=== PATIENT | female | born 1940 | race Caucasian/White ===

== ENCOUNTER → 2017-08-01 09:53 | Outpatient (CLI) | payer MEDICARE, SELFPAY ==
--- NOTE | 2017-08-01 10:01 | XR_ITS ---
XR cervical spine 5V Ordering Physician: Tayo Ramirez Patient Age: 77 years: Female HISTORY: Neck pain. Fall. 07/30/2017 neck and right shoulder pain TECHNIQUE: Five-view cervical spine series COMPARISON :None available FINDINGS No acute fracture nor subluxation. C1-C2 relationships appear normal. The dens intact. Prevertebral soft tissues and alignment satisfactory. Multilevel degenerative changes throughout the cervical spine with degenerative disc changes , cervical spondylosis as well as facet arthropathy/hypertrophy. . Degenerative disc space narrowing most evident at C3/4 also with notable disc space narrowing posterior C5/6 and C6/7,,. Less evident narrowing C4/5 disc space. Minimal diffuse endplate posterior hypertrophic ridging seen at these levelslevels and yields mild foraminal encroachment bilaterally. . facet hypertrophy & arthropathy is most pronounced C 3/4 & C4/5. Most exuberant facet hypertrophy the left at C 3/4 C4/5. & Encroach upon left foramen at each of these levels. This along with uncovertebral joint spurring yields foraminal encroachment most pronounced to the the left at C3/4. IMPRESSION: No acute fracture nor subluxation. Multilevel Degenerative disc changes, & cervical spondylosis throughout C-spine as detailed above. Also exuberant facet arthropathy/hypertrophy to the left at C3/4. & C4/5..
--- NOTE | 2017-08-01 10:01 | XR_ITS ---
XR shoulder RT min 2V Ordering Physician: Tayo Ramirez Patient Age: 77 years: Female HISTORY: ITS.REASON: S/P FALL, NECK/SHOULDER PAIN3 view of the Fall with pain right shoulder TECHNIQUE: 3 view of the right shoulder COMPARISON : None FINDINGS No fracture nor dislocation. Humeral head and neck appear intact on these submitted views. Limited external rotation. Little humeral relationships appear normal. AC joint on arthropathy with mild hypertrophic changes most evident superiorly at AC joint. The right scapula and upper right ribs appear satisfactory right lung apex clear. IMPRESSION: No acute findings right shoulder. No acute fracture nor dislocation. Degenerative changes right AC joint noted.
== END ==
PROVIDERS: PCP Internal Medicine; Visit Provider Internal Medicine
DX: M54.2 Cervicalgia (principal); M25.511 Pain in right shoulder
CPT/HCPCS: 72050; 73030

== ENCOUNTER 2017-08-05 13:45 | Outpatient (RCR) | payer MEDICARE, SELFPAY | END 2017-08-05 13:46 | disposition home or self-care (01) | LOC: PT 13:45 | PROVIDERS: Family Provider Internal Medicine; PCP Internal Medicine; Visit Provider Internal Medicine | DX: M25.511 Pain in right shoulder (principal); M54.2 Cervicalgia | CPT/HCPCS: 97010; 97014; G0283 ==

== ENCOUNTER → 2017-10-21 14:20 | Outpatient (CLI) | payer MEDICARE, SELFPAY ==
--- NOTE | 2017-10-21 14:31 | XR_ITS ---
XR facial bones min 3V COMPARISON: None HISTORY: Contusion of the fore head after a fall TECHNIQUE: Sahil Marrero and lateral facial view FINDINGS: The orbital rims and orbital floors appear intact. The paranasal sinuses are clear. The nasal bone is intact and the nasal septum is in midline. The mandibles grossly normal. There is mild hyperostosis frontalis interna. IMPRESSION: Negative for facial bone fracture
--- NOTE | 2017-10-21 14:31 | XR_ITS ---
XR knee LT 3V COMPARISON: Left knee 04/15/2017 HISTORY: Left knee pain after a fall TECHNIQUE: AP lateral and oblique views FINDINGS: The femoral prosthesis is in good alignment. The postsurgical defect of the undersurface of the patella is again noted. There is no acute fracture or no foreign bodies. And apposition to the tibial plateau prosthesis. IMPRESSION: No acute pathology noted
--- NOTE | 2017-10-21 14:31 | XR_ITS ---
XR chest 2V COMPARISON: PA and lateral chest 03/23/2016 HISTORY: Chest wall pain after a fall TECHNIQUE: PA and lateral chest FINDINGS: The lung daniels are well expanded and appear clear of infiltrate. The cardiac silhouette and vascularity are normal. There is no obvious rib fracture. IMPRESSION: Negative chest
== END ==
PROVIDERS: PCP Internal Medicine; Visit Provider Internal Medicine
DX: M25.562 Pain in left knee (principal); R07.81 Pleurodynia
CPT/HCPCS: 70150; 71046; 73562

== ENCOUNTER → 2018-01-31 15:06 | Outpatient (CLI) | payer MEDICARE, SELFPAY ==
[2018-02-05 20:30] LABS: Immunoglobulin E, Total 22 IU/mL (0-100)
== END ==
PROVIDERS: Visit Provider Nurse Practitioner Family
DX: R05 Cough (principal)
CPT/HCPCS: 36415; 82785

== ENCOUNTER → 2018-03-07 08:20 | Outpatient (CLI) | payer MEDICARE, SELFPAY ==
--- NOTE | 2018-03-07 08:24 | MM_ITS ---
MM Dig screening mamm BI w/CAD CAD Screening COMPARISON: Digital mammograms with CAD 03/04/2017 INDICATION: There is no personal or family history of breast cancer. This been previous biopsy left breast for benign disease. TECHNIQUE: Standard CC and MLO images were obtained. R2 CAD reviewed. FINDINGS: Prominent heterogenic fibro glandular densities are seen in the subareolar regions and central portions of both breasts. There are scattered benign-appearing calcifications in each breast. There is arterial calcination noted bilaterally. Therefore biopsy clips inferior medial left breast with minimal post biopsy scarring noted. There is no suspicious lesion and no suspicious microcalcifications. IMPRESSION: Moderate heterogenic breast density with no suspicious lesion seen BI-RADS Category: 2 Benign Finding(s) RECOMMENDED FOLLOW-UP: 1YR - 1 YEAR FOLLOW-UP (A letter has been sent to the patient regarding results of the study.)
== END ==
PROVIDERS: Family Provider Internal Medicine; PCP Internal Medicine; Visit Provider Surgery
DX: Z12.31 Encounter for screening mammogram for malignant neoplasm of breast (principal)
CPT/HCPCS: 77067

== ENCOUNTER → 2018-03-15 09:52 | Outpatient (CLI) | payer MEDICARE, SELFPAY ==
[2018-03-15 10:36] LABS: Basophils # 0.1 K/mm3 (0-0.2); Basophils % 0.8 % (0.1-2.0); Eosinophils # 0.5 K/mm3 (0.0-0.4); Eosinophils % 5.8 % (0.1-12.0); Hematocrit 36.4 % (37.0-47.0); Hemoglobin 11.4 g/dL (12.2-16.2); Lymphocytes # 2.7 K/mm3 (0.7-4.5); Lymphocytes % 35.6 K/mm3 (10-50); Mean Corpuscular HGB Conc 31.4 g/dL (31.8-35.4); Mean Corpuscular Hemoglobin 30.5 pg (27.0-31.2); Mean Corpuscular Volume 97.3 fl (81-99); Mean Platelet Volume 6.9 fl (7.4-10.4); Monocytes # 0.4 K/mm3 (0.1-1.0); Monocytes % 4.8 % (1.7-9.3); Neutrophils # 4.1 K/mm3 (1.8-7.8); Platelet Count 328 K/mm3 (142-424); Red Blood Count 3.74 M/mm3 (4.20-5.40); Red Cell Distribution Width 15.3 % (11.5-17.5); White Blood Count 7.7 K/mm3 (4.8-10.8)
[2018-03-15 13:15] LABS: Alanine Aminotransferase 24 U/L (12-78); Albumin Level 3.9 gm/dL (3.4-5.0); Albumin/Globulin Ratio 1.4 (1.1-1.8); Alkaline Phosphatase 97 U/L (46-116); Anion Gap 12.7 mEq/L (5-15); Aspartate Amino Transferase 20 U/L (15-37); Bilirubin,Total 0.5 mg/dL (0.2-1.0); Blood Urea Nitrogen 27 mg/dL (7-18); Calcium 9.3 mg/dL (8.5-10.1); Carbon Dioxide 30 mmol/L (21.0-32.0); Chloride 105 mmol/L (98-107); Chol/HDL Ratio 2.8 (1-3.5); Cholesterol 180 mg/dL (140-200); Creatinine,Serum 2.01 mg/dL (0.55-1.02); Estimated Glomerular Filt Rate 24 ml/min (>60); GFR (African American) 29 ML/MIN (>60); Globulin 2.7 gm/dl (1.3-3.2); Glucose 95 mg/dL (74-106); HDL Cholesterol 65 mg/dL (29-89); LDL Cholesterol 80 mg/dL (0-130); Potassium 5.7 mmoL/L (3.5-5.1); Sodium 142 mmol/L (136-145); Total Protein,Serum 6.6 gm/dL (6.4-8.2); Triglycerides 175 mg/dL (30-200); Uric Acid 2.2 mg/dL (2.6-7.2); VLDL Cholesterol 35 mg/dL (0-40)
== END ==
PROVIDERS: PCP Internal Medicine; Visit Provider Internal Medicine
DX: I10 Essential (primary) hypertension (principal); E78.5 Hyperlipidemia, unspecified; E03.9 Hypothyroidism, unspecified; N18.3 Chronic kidney disease, stage 3 (moderate); M15.0 Primary generalized (osteo)arthritis
CPT/HCPCS: 36415; 80053; 80061; 84443; 84550; 85025

== ENCOUNTER → 2018-06-06 15:19 | Outpatient (POV) | payer MEDICARE, SELFPAY | PROVIDERS: Visit Provider Internal Medicine | DX: Z00.00 Encounter for general adult medical examination without abnormal findings (principal) ==

== ENCOUNTER → 2018-06-12 08:46 | Outpatient (CLI) | payer MEDICARE, SELFPAY ==
--- NOTE | 2018-06-12 09:01 | FL_ITS ---
EXAM: Barium swallow/esophagram. INDICATION: ITS.REASON: ASTHMATIC BRONCHITIS,ACID REFLUX ORDERING PHYSICIAN: Kanu Bell MD PATIENT AGE: 78 years COMPARISON: None TECHNIQUE: In the upright position the patient was observed to swallow barium in both the AP and lateral view. The cervical esophagus was examined under fluoroscopy with images obtained. The patient was then placed prone in the right anterior oblique position and was observed to swallow barium with Valsalva technique . FLUOROSCOPY TIME: 53 seconds FINDINGS: There was no evidence of aspiration. There was normal peristalsis. No filling defects or mucosal abnormalities. No masses or strictures. There is a small sliding hiatal hernia. Reflux was not demonstrated during the exam. IMPRESSION: Small sliding hiatal hernia otherwise negative barium swallow
[2018-06-12 09:51] LABS: Basophils # 0.1 K/mm3 (0-0.2); Basophils % 0.8 % (0.1-2.0); Eosinophils # 0.3 K/mm3 (0.0-0.4); Eosinophils % 4.5 % (0.1-12.0); Hematocrit 38.9 % (37.0-47.0); Hemoglobin 11.8 g/dL (12.2-16.2); Lymphocytes # 3.2 K/mm3 (0.7-4.5); Lymphocytes % 43.4 % (10-50); Mean Corpuscular HGB Conc 30.3 g/dL (31.8-35.4); Mean Corpuscular Hemoglobin 30.1 pg (27.0-31.2); Mean Corpuscular Volume 99.1 fl (81-99); Mean Platelet Volume 6.9 fl (7.4-10.4); Monocytes # 0.3 K/mm3 (0.1-1.0); Monocytes % 4.2 % (1.7-9.3); Neutrophils # 3.5 K/mm3 (1.8-7.8); Neutrophils % 46.9 % (37.0-80.0); Platelet Count 307 K/mm3 (142-424); Red Blood Count 3.93 M/mm3 (4.20-5.40); White Blood Count 7.4 K/mm3 (4.8-10.8)
[2018-06-15 15:22] LABS: Immunoglobulin E, Total 18 IU/mL (0-100)
== END ==
PROVIDERS: Visit Provider Internal Medicine
DX: J45.909 Unspecified asthma, uncomplicated (principal); K21.9 Gastro-esophageal reflux disease without esophagitis; K22.5 Diverticulum of esophagus, acquired
CPT/HCPCS: 36415; 74220; 82785; 85025

== ENCOUNTER → 2018-08-01 13:41 | Outpatient (POV) | payer MEDICARE, SELFPAY | PROVIDERS: Visit Provider Internal Medicine | DX: Z00.00 Encounter for general adult medical examination without abnormal findings (principal) ==

== ENCOUNTER → 2018-10-04 10:08 | Outpatient (CLI) | payer MEDICARE, SELFPAY ==
[2018-10-05 15:06] LABS: Folate 5.9 ng/mL (>3.0); Vitamin B12 194 pg/mL (232-1245)
[2018-10-09 13:12] LABS: Albumin 3.7 g/dL (2.9-4.4); Alpha-1-Globulin 0.3 g/dL (0.0-0.4); Alpha-2-Globulin 0.8 g/dL (0.4-1.0); Gamma Globulin 0.5 g/dL (0.4-1.8); Protein, Total 6.4 g/dL (6.0-8.5)
== END ==
PROVIDERS: Visit Provider Internal Medicine
DX: N18.3 Chronic kidney disease, stage 3 (moderate) (principal); E78.5 Hyperlipidemia, unspecified
CPT/HCPCS: 36415; 82607; 82746; 83655; 84155; 84165

== ENCOUNTER → 2018-10-09 11:10 | Outpatient (POV) | payer MEDICARE, SELFPAY | PROVIDERS: Visit Provider Internal Medicine | DX: Z00.00 Encounter for general adult medical examination without abnormal findings (principal) ==

== ENCOUNTER → 2018-10-30 12:37 | Outpatient (CLI) | payer MEDICARE, SELFPAY ==
--- NOTE | 2018-10-30 12:40 | CT_ITS ---
CT chest wo con HISTORY: Chronic cough, shortness of air ITS.REASON: CHRONIC COUGH ORDERING PHYSICIAN: Kanu Bell MD PATIENT AGE: 78 years COMPARISON: None Technique: Axial images obtained. Sagittal, and coronal reformatted images are also generated and reviewed. All CT scans at the facility use one or more dose reduction, viz: automated exposure control, ma/kV adjustment per patient size (including targeted exams where dose is matched to indication, i.e. head), or iterative reconstruction technique. FINDINGS: There are extensive coronary artery calcifications with normal heart size. No evidence pericardial effusion. No mediastinal or hilar mass. No evidence of aortic aneurysm. There is small hiatal hernia. Nodular opacities noncalcified. There are at least 2 noncalcified nodules in the right apex largest at 4 mm. Numerous small noncalcified nodular opacities are present in the right middle lobe inferiorly measuring up to 4 mm. No lobar consolidation or collapse. There are few scattered areas of scarring. No effusions or infiltrates. No central obstructing lesions. No acute bony findings. There is mild upper thoracic scoliosis convex right. IMPRESSION: 1. Scattered small nodular opacities on the right 4 mm or less. Suggest 6 month follow-up to confirm stability. 2. Coronary artery calcifications.
== END ==
PROVIDERS: PCP Internal Medicine; Visit Provider Internal Medicine
DX: R05 Cough (principal)
CPT/HCPCS: 71250

== ENCOUNTER → 2018-11-06 15:07 | Outpatient (CLI) | payer MEDICARE, SELFPAY ==
--- NOTE | 2018-11-06 15:13 | XR_ITS ---
XR hip LT 2-3V w/pelvis HISTORY: Pain following injury ITS.REASON: S/P FALL 5/3, HIT LT SIDE OF BODY ORDERING PHYSICIAN: Tayo Ramirez PATIENT AGE: 78 years COMPARISON: None FINDINGS: No fracture or dislocation is evident. No significant degenerative change. No lytic or blastic change. Unremarkable soft tissues. There is a small calcific density well-circumscribed along the superior medial aspect of the greater trochanter consistent with an accessory center of ossification or an old injury. Suture present within the pelvis IMPRESSION: No acute finding
--- NOTE | 2018-11-06 15:13 | XR_ITS ---
XR ankle LT min 3V HISTORY: Pain following injury ITS.REASON: S/P FALL 5/3, HIT LT SIDE OF BODY ORDERING PHYSICIAN: Tayo Ramirez PATIENT AGE: 78 years Comparison: None FINDINGS: No fracture or dislocation. No lytic or blastic change. There is normal mineralization.. The joint spaces are well-preserved. No significant degenerative/arthritic changes. No erosive changes evident. IMPRESSION: Negative ankle, no acute finding
--- NOTE | 2018-11-06 15:20 | XR_ITS ---
XR foot RT min 3V HISTORY: Pain following injury ITS.REASON: S/P FALL 11/03 ORDERING PHYSICIAN: Tayo Ramirez PATIENT AGE: 78 years COMPARISON: None FINDINGS: Severe osteoarthritic changes first metatarsal phalangeal joint. Flexion deformity of the second toe. No fracture or dislocation. IMPRESSION: No acute finding. Osteoarthritis of the first MTP joint
--- NOTE | 2018-11-06 15:26 | CT_ITS ---
CT head/brain wo con HISTORY: Headache, pain, contusion or hematoma following injury ITS.REASON: S/P FALL 11/03 ORDERING PHYSICIAN: Tayo Ramirez PATIENT AGE: 78 years COMPARISON: None TECHNIQUE: Axial images obtained without contrast. Brain and bone windows reviewed. All CT scans at the facility use one or more dose reduction, viz: automated exposure control, ma/kV adjustment per patient size (including targeted exams where dose is matched to indication, i.e. head), or iterative reconstruction technique. FINDINGS: No midline shift, mass effect, intracranial hemorrhage, hydrocephalus, or extra-axial fluid collection is evident. Intracranial vascular calcification is noted. There is mild atrophy with hypoattenuation in the periventricular regions consistent with ischemic gliotic change from microvascular disease. 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 No mastoid effusion. No sinus air-fluid levels.. IMPRESSION: No acute intracranial findings
== END ==
PROVIDERS: PCP Internal Medicine; Visit Provider Internal Medicine
DX: M25.552 Pain in left hip (principal); R10.2 Pelvic and perineal pain; M25.572 Pain in left ankle and joints of left foot
CPT/HCPCS: 70450; 73502; 73610; 73630

== ENCOUNTER → 2019-01-23 13:15 | Outpatient (POV) | payer MEDICARE, SELFPAY | PROVIDERS: Visit Provider Dermatology | DX: Z00.00 Encounter for general adult medical examination without abnormal findings (principal) ==

== ENCOUNTER → 2019-03-09 08:28 | Outpatient (CLI) | payer MEDICARE, SELFPAY ==
--- NOTE | 2019-03-09 08:29 | MM_ITS ---
PROCEDURE: MM DIG SCREENING MAMM BI W/CAD Patient Age:79Y CLINICAL INDICATION: history of adh Routine screening mammogram 79-year-old. No hormones. Previous benign lumpectomy/biopsy inferior left breast lumpectomy scar noted on history sheet COMPARISON: [facility]B DIG MAMM-SCREEN ABHAY from 06/02/2016 DMDXUL DIG MAMM-DX UNI-LT from 06/16/2016 DMBAV DIG MAMM- ABHAY ADD VIEWS from 06/16/2016 DMNLL DIG MAMM-NEEDLE LOC-LT from 08/20/2016 DMSS DIG MAMM-SURGICAL SPECIMEN from 08/20/2016 DMSB DIG MAMM-SCREEN ABHAY W/CAD from 03/04/2017 [facility] MM Dig screening mamm BI w/CAD from 03/07/2018 TECHNIQUE: Standard CC and MLO images were obtained. R2 CAD reviewed. FINDINGS: Moderately dense breast tissue throughout both breast but no new or dominant mass. No suspicious calcifications. Scattered benign-appearing calcifications bilaterally.. Incidental note the multi-vessel vascular calcifications bilaterally to correlate with increased likelihood of CAD Minor asymmetry Left breast with previous surgical clips from lumpectomy-medial inferior left breast There is also a small percutaneous biopsy marker at the lateral left breast . IMPRESSION: Stable bilateral mammogram. Moderately dense breast but no new areas of significant concern Previous lumpectomy and biopsies left breast noted BI-RAD Category: 2 Benign Finding(s) FOLLOW-UP: 1YR 1 Year Follow-up (A letter has been sent to the patient regarding results of the study.) Dictated by: Prosper Salcedo MD 03/16/2019 09:57 Electronically signed by Prosper Salcedo MD in [place] 03/16/2019 09:57
== END ==
PROVIDERS: PCP Internal Medicine; Visit Provider Surgery
DX: Z12.31 Encounter for screening mammogram for malignant neoplasm of breast (principal)
CPT/HCPCS: 77067

== ENCOUNTER → 2019-03-26 09:54 | Outpatient (CLI) | payer MEDICARE, SELFPAY ==
[2019-03-26 10:21] LABS: Basophils # 0.1 K/mm3 (0-0.2); Basophils % 0.9 % (0.1-2.0); Eosinophils # 0.6 K/mm3 (0.0-0.4); Eosinophils % 5.8 % (0.1-12.0); Hemoglobin 11.6 g/dL (12.2-16.2); Lymphocytes # 4.1 K/mm3 (0.7-4.5); Lymphocytes % 42.5 % (10-50); Mean Corpuscular HGB Conc 29.7 g/dL (31.8-35.4); Mean Corpuscular Hemoglobin 29.4 pg (27.0-31.2); Mean Corpuscular Volume 99.1 fl (81-99); Mean Platelet Volume 7.8 fl (7.4-10.4); Monocytes # 0.4 K/mm3 (0.1-1.0); Monocytes % 4.3 % (1.7-9.3); Neutrophils # 4.4 K/mm3 (1.8-7.8); Neutrophils % 46.4 % (37.0-80.0); Platelet Count 348 K/mm3 (142-424); Red Blood Count 3.93 M/mm3 (4.20-5.40); Red Cell Distribution Width 15.5 % (11.5-17.5); White Blood Count 9.6 K/mm3 (4.8-10.8)
[2019-03-26 11:42] LABS: Alanine Aminotransferase 22 U/L (12-78); Albumin Level 3.7 gm/dL (3.4-5.0); Albumin/Globulin Ratio 1.2 (1.1-1.8); Alkaline Phosphatase 110 U/L (46-116); Aspartate Amino Transferase 26 U/L (15-37); Bilirubin,Total 0.6 mg/dL (0.2-1.0); Blood Urea Nitrogen 23 mg/dL (7-18); Calcium 9.6 mg/dL (8.5-10.1); Carbon Dioxide 29 mmol/L (21.0-32.0); Chloride 102 mmol/L (98-107); Chol/HDL Ratio 2.4 (1-3.5); Cholesterol 167 mg/dL (140-200); Creatinine,Serum 1.93 mg/dL (0.55-1.02); Estimated Glomerular Filt Rate 25 ml/min (>60); GFR (African American) 30 ML/MIN (>60); Glucose 111 mg/dL (74-106); HDL Cholesterol 69 mg/dL (29-89); LDL Cholesterol 68 mg/dL (0-130); Sodium 140 mmol/L (136-145); Thyroid Stimulating Hormone 3.68 uIU/ml (0.358-3.740); Total Protein,Serum 6.7 gm/dL (6.4-8.2); Triglycerides 148 mg/dL (30-200); Uric Acid 2.3 mg/dL (2.6-7.2); VLDL Cholesterol 30 mg/dL (0-40)
== END ==
PROVIDERS: Visit Provider Internal Medicine
DX: I10 Essential (primary) hypertension (principal); E78.5 Hyperlipidemia, unspecified; E03.9 Hypothyroidism, unspecified; E53.8 Deficiency of other specified B group vitamins
CPT/HCPCS: 36415; 80053; 80061; 84443; 84550; 85025

== ENCOUNTER → 2019-04-10 15:32 | Outpatient (CLI) | payer MEDICARE, SELFPAY ==
--- NOTE | 2019-04-10 15:38 | XR_ITS ---
PROCEDURE: XR CHEST 2V CLINICAL HISTORY: EPIGASTRIC PAIN,HEMOPTYSIS COMPARISON: CXR CHEST(2 VIEWS-NOT PORTABLE) from 03/23/2016 CXR2V XR chest 2V from 10/21/2017 CXR2V XR chest 2V from 11/28/[address] chest wo con from 10/30/2018 FINDINGS: The cardiomediastinal silhouette and pulmonary vascularity are within normal limits. There is chronic elevation of the right hemidiaphragm. Lungs are clear bilaterally. No acute bony abnormalities. IMPRESSION: No change with no acute finding Dictated by: Noe Cramer MD 04/10/2019 16:17 Electronically signed by Noe Cramer MD in [place] 04/10/2019 16:19
--- NOTE | 2019-04-10 15:38 | XR_ITS ---
PROCEDURE: XR KUB CLINICAL INDICATION: EPIGASTRIC PAIN,HEMOPTYSIS COMPARISON: ABDPELWO CT abdomen pelvis wo con from 11/28/2017 FINDINGS: Surgical clips are present in the right upper quadrant. Sutures are also present in the pelvic region. Unremarkable bowel gas pattern. No intestinal obstruction or free air. There is mild lumbar curvature convex left. There are degenerative changes in the lumbar spine. IMPRESSION: No acute findings. Dictated by: Noe Cramer MD 04/10/2019 16:18 Electronically signed by Noe Cramer MD in [place] 04/10/2019 16:18
== END ==
PROVIDERS: PCP Internal Medicine; Visit Provider Internal Medicine
DX: R10.13 Epigastric pain (principal); R04.2 Hemoptysis
CPT/HCPCS: 71046; 74018

== ENCOUNTER → 2019-04-17 14:15 | Outpatient (CLI) | payer MEDICARE, SELFPAY ==
--- NOTE | 2019-04-17 14:20 | CT_ITS ---
PROCEDURE: CT CHEST WO CON The CLINICAL INDICATION: HEMOPTYSIS COMPARISON: CHESTWO CT chest wo con from 10/30/2018 TECHNIQUE: Axial images obtained with sagittal and coronal reformats. All CT scans at the facility use one or more dose reduction, viz: automated exposure control, ma/kV adjustment per patient size (including targeted exams where dose is matched to indication, i.e. head), or iterative reconstruction technique. FINDINGS: No mediastinal or hilar mass or adenopathy. There is a small hiatal hernia. There are coronary artery calcifications. No evidence of aortic aneurysm. There are scattered fibrotic changes. Small nodular opacities in the right apex are unchanged. The nodular densities in the inferior aspect of the right middle lobe are no longer apparent. There is a faint 3 mm nodule in the superior segment of the left lower lobe not significantly changed. No new nodules are evident. No infiltrates or effusions. Upper abdominal images show a small hiatal hernia. There are mild degenerative changes of the thoracic spine. Surgical clips are present in the left breast. The right kidney is smaller than expected IMPRESSION: 1. No acute finding. 2. Nodular opacities in the right middle lobe are no longer apparent. Other small nodular opacities appear stable. 3. Coronary artery calcification. 4. Small right kidney Dictated by: Noe Cramer MD 04/18/2019 16:50 Electronically signed by Noe Cramer MD in [place] 04/18/2019 16:50
== END ==
PROVIDERS: PCP Internal Medicine; Visit Provider Internal Medicine
DX: R04.2 Hemoptysis (principal)
CPT/HCPCS: 71250

== ENCOUNTER → 2019-07-06 08:46 | Outpatient (CLI) | payer MEDICARE, SELFPAY ==
--- NOTE | 2019-07-06 08:48 | FL_ITS ---
PROCEDURE: FL UPPER GI ESOPHAGUS W/AIR CLINICAL INDICATION: Dysphagia, history of esophageal surgery COMPARISON: No exams were available for comparison TECHNIQUE: FLUOROSCOPY TIME : 1 minutes and 51 seconds FINDINGS: Examination of the esophagus show some minimal pooling within the right piriform sinus and incomplete distention the upper esophagus. No definite annular constricting lesions. There is a small sliding hiatal hernia. There was mild GE reflux noted. Stomach has an unremarkable appearance. There is a small outpouching involving the tip of the duodenal bulb suggesting a small diverticulum. No definite ulcer. No obvious mass. IMPRESSION: 1. Small sliding hiatal hernia. There is some pooling of contrast within the right piriform sinus nonspecific with incomplete distention of the upper thoracic esophagus. 2. Small duodenal diverticulum Dictated by: Noe Cramer MD 07/06/2019 11:11 Electronically signed by Noe Cramer MD in [facility] 07/06/2019 11:11
== END ==
PROVIDERS: PCP Internal Medicine; Visit Provider Internal Medicine
DX: R13.10 Dysphagia, unspecified (principal)
CPT/HCPCS: 74220; 74240; 74246; 74247

== ENCOUNTER → 2019-08-21 10:35 | Outpatient (POV) | payer MEDICARE, SELFPAY | PROVIDERS: PCP Internal Medicine; Visit Provider Otolaryngology | DX: Z00.00 Encounter for general adult medical examination without abnormal findings (principal) ==

== ENCOUNTER → 2019-08-24 14:23 | Outpatient (CLI) | payer MEDICARE, SELFPAY ==
--- NOTE | 2019-08-24 14:29 | XR_ITS ---
PROCEDURE: XR SHOULDER RT MIN 2V CLINICAL INDICATION: S/P FALL RT UPPER ARM PAIN COMPARISON: [id number] VIEWS from 04/15/2017 SHOULDCMRT XR shoulder RT min 2V from 08/01/2017 FINDINGS: There is no acute fracture dislocation or destructive lesion. Mild acromioclavicular joint arthropathy is noted. Decreased acromial humeral distance is noted on the external rotation view. This could be causing rotator cuff impingement or be associated with chronic tear. IMPRESSION: No acute findings. Degenerative findings. Dictated by: Elmer Davison 08/24/2019 15:06 Electronically signed by Elmer Davison in [place] 08/24/2019 15:06
--- NOTE | 2019-08-24 14:29 | XR_ITS ---
PROCEDURE: XR HUMERUS RT CLINICAL INDICATION: S/P FALL RT UPPER ARM PAIN COMPARISON: No exams were available for comparison FINDINGS: No fracture or dislocation. No lytic or blastic change. There is normal mineralization. There is mild acromioclavicular and glenohumeral joint arthropathy. Some superior subluxation of the humeral head with decreased acromiohumeral distance is noted. Other findings:None. IMPRESSION: No acute findings. Dictated by: Elmer Davison 08/24/2019 15:05 Electronically signed by Elmer Davison in [place] 08/24/2019 15:05
== END ==
PROVIDERS: PCP Internal Medicine; Visit Provider Internal Medicine
DX: M25.511 Pain in right shoulder (principal); M79.601 Pain in right arm
CPT/HCPCS: 73030; 73060

== ENCOUNTER 2019-09-04 13:30 | Outpatient (RCR) | payer MEDICARE, SELFPAY ==
--- NOTE | 2019-08-29 11:02 | HMH.PTOPEV ---
PT Outpatient Evaluation Rehab PT Outpatient Evaluation Start: 08/29/19 10:47 Freq: Status: Active Protocol: Document 08/29/19 10:47 [email or web address] (Rec: 08/29/19 11:02 [email or web address] [id number]) Electronically Signed By Marcio Phelps, PT 08/29/19 10:47 Outpatient Therapy Subjective History Subjective History Patient is a 79 year old female presenting to outpatient PT with reports of R shoulder pain starting approximatley 1.5 weeks ago after a fall at home. Most recent imaging negative for any fractures. Comorbidities include hx of skin/vaginal cancer, HTN, hysterectomy, tubal ligation and L TKA. Chief Complaint Pain,Stiff Symptom Type Throb Symptoms Relieved By Rest/Positioning,Heat,Ice Symptoms Aggravated By Physical Activity Prior Functional Limitations None Current Functional Limitations Reaching,Lifting,Housework, Dressing,Driving,Sleeping, Recreation Activity Symptom Description Constant but Variable Level of pain today (0-10) 7 Pain scale - at its best (0-10) 7 Pain scale - at its worst (0-10) 10 Shoulder/Elbow Eval Shoulder Objective Measurements Palpation Tenderness Shoulder Palpation Findings Tenderness Shoulder Palpation Overall Comment R ACJ, posterior cuff Posture Shoulder Posture Sitting Position (L) Forward,(R) Forward Shoulder Posture Standing Position (L) Forward,(R) Forward Scapula Posture Sitting Position (L) Protracted,(R) Protracted Scapular Posture Standing Position (L) Protracted,(R) Protracted Flexibilty Deficits Upper Trapezius Muscle Length (R) Mild Tightness,(L) Mild Tightness Shoulder ROM Right Shoulder Abduction Active Range of 80 Motion (degrees) Shoulder Flexion Active Range of Motion 88 (degrees) Query Text: Shoulder External Rotation Active Range 75 of Motion (degrees) Shoulder Internal Rotation Active Range 70 of Motion (degrees) Shoulder MMT Shoulder Abduction Strength Grade 4- Good- Shoulder Extension Strength Grade 4- Good- Shoulder Flexion Strength Grade 4- Good- Shoulder External Rotation Strength 3+ Fair+ Grade Shoulder Internal Rotation Strength 4- Good- Grade Shoulder Special Tests impingement sign present shoulder exam right standard Shoulder Drop Arm Test Negative Right Shoulder Cross-Over Impingement Test Positive Right
== END 2019-09-04 14:20 | disposition home or self-care (01) ==
LOC: PT 13:30
PROVIDERS: PCP Internal Medicine; Visit Provider Internal Medicine
DX: M79.621 Pain in right upper arm (principal)
CPT/HCPCS: 97010; 97014; 97035; 97110; 97163; G0283

== ENCOUNTER → 2020-01-28 14:49 | Outpatient (CLI) | payer MEDICARE, SELFPAY ==
--- NOTE | 2020-01-28 15:02 | ECG_ITS ---
APPROVED REPORT Exam: Resting ECG HR:88 bpm ECG Measurements Heart Rate 88 AXES NH 128 P 66 QRSd 78 QRS 24 QT 360 T 65 QTc 435 <Conclusion> Normal sinus rhythm Normal ECG Electronically signed by : Tayo Ramirez, 01/28/2020 15:13:33
== END ==
PROVIDERS: PCP Internal Medicine; Visit Provider Internal Medicine
DX: R07.9 Chest pain, unspecified (principal)
CPT/HCPCS: 93005

== ENCOUNTER → 2020-02-26 12:53 | Outpatient (POV) | payer MEDICARE, SELFPAY | PROVIDERS: Visit Provider Dermatology | DX: Z00.00 Encounter for general adult medical examination without abnormal findings (principal) ==

== ENCOUNTER → 2020-03-21 13:23 | Outpatient (CLI) | payer MEDICARE, SELFPAY ==
--- NOTE | 2020-03-21 13:25 | MM_ITS ---
PROCEDURE: MM DIG SCREENING MAMM BI W/CAD Digital Breast Tomosynthesis Included CLINICAL INDICATION: SCREENING There is a history of lumpectomy left breast I am not certain from the available history whether the lumpectomy was benign or malignant COMPARISON: MG DMSB DIG MAMM-SCREEN ABHAY W/CAD from 03/04/2017 [facility] MM Dig screening mamm BI w/CAD from 03/07/2018 MG MM DIG SCREENING MAMM BI W/CAD from 03/09/2019 TECHNIQUE: Standard CC and MLO images and 3D Tomosynthesis was obtained. R2 CAD reviewed. FINDINGS: Mild to moderate diffuse fibroglandular densities are seen in the central portions of both breasts. There are scattered benign-appearing microcalcifications in each breast. There are surgical clips left breast from previous lumpectomy. There is an additional small biopsy clip more anteriorly located outer quadrant left breast. There is arterial calcification in each breast. There is no new or suspicious lesion in either breast and no suspicious microcalcifications. IMPRESSION: Moderate breast density with no suspicious lesions seen BI-RAD Category: 2 Benign Finding(s) FOLLOW-UP: 1YR 1 Year Follow-up (A letter has been sent to the patient regarding results of the study.) Dictated by: Dr. Helio Ling MD 03/24/2020 13:54 Dr. Helio Ling MD in [place] 03/24/2020 13:54
== END ==
PROVIDERS: PCP Internal Medicine; Visit Provider Internal Medicine
DX: Z12.31 Encounter for screening mammogram for malignant neoplasm of breast (principal)
CPT/HCPCS: 77063; 77067

== ENCOUNTER → 2020-08-26 10:46 | Outpatient (CLI) | payer MEDICARE, SELFPAY | PROVIDERS: PCP Internal Medicine; Visit Provider Internal Medicine | DX: R05 Cough; R50.9 Fever, unspecified; Z20.822 Contact with and (suspected) exposure to COVID-19 | CPT/HCPCS: U0003 ==

== ENCOUNTER → 2020-10-20 10:03 | Outpatient (CLI) | payer MEDICARE, SELFPAY ==
--- NOTE | 2020-10-20 10:06 | XR_ITS ---
PROCEDURE: XR DEXA AXIAL SKELETON CLINICAL HISTORY: POST MENOPAUSAL COMPARISON: No exams were available for comparison FINDINGS: The right hip BMD is 0.769 with a T-score of -0.7. The left hip BMD is 0.816 with a T-score of -1.0. The lumbar spine BMD is 1.110 with a T-score of 0.6. IMPRESSION: This patient is considered normal according to the World Health Organization criteria. Fracture risk is low. Based on these results a follow-up exam is recommended in 2 year. Dictated by: Noe Cramer MD 10/20/2020 22:33 Noe Cramer MD in [place] 10/21/2020 10:02
== END ==
PROVIDERS: PCP Internal Medicine; Visit Provider Internal Medicine
DX: Z78.0 Asymptomatic menopausal state (principal)
CPT/HCPCS: 77080

== ENCOUNTER → 2021-01-23 14:10 | Outpatient (POV) | payer MEDICARE, SELFPAY | PROVIDERS: Visit Provider Internal Medicine Nephrology | DX: Z00.00 Encounter for general adult medical examination without abnormal findings (principal) ==

== ENCOUNTER → 2021-03-02 14:21 | Outpatient (CLI) | payer MEDICARE, SELFPAY ==
[2021-03-02 15:10] LABS: Coronavirus 19, PCR Not Detected (NotDetected); Influenza A, PCR Not Detected (NotDetected); Influenza B, PCR Not Detected (NotDetected)
== END ==
PROVIDERS: PCP Internal Medicine; Visit Provider Internal Medicine
DX: Z20.822 Contact with and (suspected) exposure to COVID-19 (principal)
CPT/HCPCS: U0003

== ENCOUNTER → 2021-03-11 09:32 | Outpatient (CLI) | payer MEDICARE, SELFPAY ==
[2021-03-11 10:30] VITALS: PULSE 62; PULSE 64
== END ==
PROVIDERS: PCP Internal Medicine; Visit Provider Internal Medicine Pulmonary Disease
DX: R06.02 Shortness of breath (principal); R05 Cough
CPT/HCPCS: 94060; 94618; 94640; 94727; 94729

== ENCOUNTER → 2021-03-18 08:09 | Outpatient (CLI) | payer MEDICARE, SELFPAY ==
[2021-03-18 08:14] LABS: Microscopic, Urine URINE MICROSCOPIC (MICROSCOPIC)
[2021-03-18 09:02] LABS: Mean Corpuscular HGB Conc 30.6 g/dL (31.8-35.4); Mean Corpuscular Hemoglobin 29.1 pg (27.0-31.2); Platelet Count 329 K/mm3 (142-424); Red Blood Count 3.79 M/mm3 (4.20-5.40); Red Cell Distribution Width 16.5 % (11.5-17.5); White Blood Count 8.6 K/mm3 (4.8-10.8)
[2021-03-18 10:14] LABS: Alanine Aminotransferase 16 U/L (12-78); Albumin Level 3.9 g/dl (3.5-5.0); Albumin/Globulin Ratio 1.6 (1.1-1.8); Alkaline Phosphatase 85 U/L (38-126); Aspartate Amino Transferase 32 U/L (14-36); Bilirubin,Total 0.4 mg/dl (0.2-1.3); Blood Urea Nitrogen 27 mg/dl (7-17); Calcium 9.3 mg/dl (8.4-10.2); Carbon Dioxide 32 mmol/L (22.0-30.0); Chloride 99 mmol/L (98-107); Estimated Glomerular Filt Rate 24 ml/min (>60); GFR (African American) 29 ML/MIN (>60); Globulin 2.5 g/dL (1.3-3.2); Glucose 101 mg/dl (74-100); Sodium 139 mmol/L (136-145); Total Protein,Serum 6.4 g/dl (6.3-8.2); Uric Acid 2.6 mg/dl (2.5-6.2)
[2021-03-18 10:16] LABS: Appearance,Urine CLEAR (Clear); Bilirubin,Urine Negative (Negative); Blood, Urine Negative (Negative); Color,Urine YELLOW (Yellow); Glucose,Urine (UA) Negative (Negative); Ketones,Urine Negative (Negative); Leukocyte Esterase,Urine TRACE (Negative); Nitrate,Urine Negative (Negative); PH,Urine 5.5 (5.0-8.5); Protein,Urine Negative (Negative); Specific Gravity, Urine 1.025 (1.005-1.030); Urobilinogen,Urine 0.2 EU/dl (0.2)
[2021-03-18 10:27] LABS: Intact Parathyroid Hormone 228.1 pg/mL (7.5-53.5)
[2021-03-18 10:32] LABS: 25-OH Vitamin D, Total 43.6 ng/mL (30-100)
[2021-03-18 10:36] LABS: Creatinine,Urine Random 166 mg/dL (Not Estab.)
[2021-03-18 10:46] LABS: Thyroid Stimulating Hormone 2.06 uIU/mL (0.465-4.68)
== END ==
PROVIDERS: Visit Provider Internal Medicine Nephrology
DX: I12.9 Hypertensive chronic kidney disease with stage 1 through stage 4 chronic kidney disease, or unspecified chronic kidney disease (principal); N18.4 Chronic kidney disease, stage 4 (severe); E03.9 Hypothyroidism, unspecified; E78.5 Hyperlipidemia, unspecified
CPT/HCPCS: 36415; 80053; 81001; 82306; 82570; 83970; 84155; 84443; 84550; 85014; 85018; 85048; 85049

== ENCOUNTER → 2021-03-23 10:12 | Outpatient (CLI) | payer MEDICARE, SELFPAY ==
--- NOTE | 2021-03-23 10:15 | MM_ITS ---
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 COMPARISON: [facility] MM Dig screening mamm BI w/CAD from 03/07/2018 MG MM DIG SCREENING MAMM BI W/CAD from 03/09/2019 MG MM DIG SCREENING MAMM BI W/CAD from 03/21/2020 TECHNIQUE: Standard CC and MLO images and 3D Tomosynthesis was obtained. R2 CAD reviewed. FINDINGS: Moderate fibroglandular densities are seen in the central portions and subareolar regions of both breast and the findings are fairly symmetrical. There are multiple surgical clips left breast from previous biopsy and or lumpectomy. There is an additional biopsy clip outer quadrant left breast. There are scattered benign-appearing calcifications in each breast and there is faint arterial calcification in each breast. CAD markings were reviewed and they all appear to be secondary to arterial calcifications. There is no new or suspicious lesion in either breast and there are no suspicious microcalcifications. IMPRESSION: Stable exam with fibrofatty parenchyma and no suspicious lesions seen BI-RAD Category: 2 Benign Finding(s) FOLLOW-UP: 1YR 1 Year Follow-up (A letter has been sent to the patient regarding results of the study.) Dictated by: Dr. Helio Ling MD 04/09/2021 08:25 Dr. Helio Ling MD in [place] 04/09/2021 08:25
== END ==
PROVIDERS: PCP Internal Medicine; Visit Provider Internal Medicine
DX: Z12.31 Encounter for screening mammogram for malignant neoplasm of breast (principal)
CPT/HCPCS: 77063; 77067

== ENCOUNTER → 2021-03-27 13:50 | Outpatient (POV) | payer MEDICARE, SELFPAY | PROVIDERS: Visit Provider Internal Medicine Nephrology | DX: Z00.00 Encounter for general adult medical examination without abnormal findings (principal) ==

== ENCOUNTER → 2021-04-01 12:46 | Outpatient (CLI) | payer MEDICARE, SELFPAY ==
[2021-04-01 13:30] LABS: Basophils # 0.1 K/mm3 (0-0.2); Basophils % 0.7 % (0.1-2.0); Eosinophils # 0.5 K/mm3 (0.0-0.4); Eosinophils % 5.9 % (0.1-12.0); Hematocrit 36.4 % (37.0-47.0); Hemoglobin 11.1 g/dL (12.2-16.2); Lymphocytes # 2.8 K/mm3 (0.7-4.5); Lymphocytes % 34.4 % (10-50); Mean Corpuscular HGB Conc 30.4 g/dL (31.8-35.4); Mean Corpuscular Hemoglobin 29.1 pg (27.0-31.2); Mean Corpuscular Volume 95.8 fl (81-99); Monocytes # 0.5 K/mm3 (0.1-1.0); Monocytes % 5.6 % (1.7-9.3); Neutrophils # 4.3 K/mm3 (1.8-7.8); Neutrophils % 53.4 % (37.0-80.0); Platelet Count 399 K/mm3 (142-424); Red Cell Distribution Width 16.7 % (11.5-17.5); White Blood Count 8.1 K/mm3 (4.8-10.8)
[2021-04-01 13:59] LABS: Anion Gap 12.9 mEq/L (5-15); Blood Urea Nitrogen 28 mg/dl (7-17); Calcium 9.4 mg/dl (8.4-10.2); Carbon Dioxide 29 mmol/L (22.0-30.0); Chloride 101 mmol/L (98-107); Estimated Glomerular Filt Rate 24 ml/min (>60); GFR (African American) 29 ML/MIN (>60); Glucose 107 mg/dl (74-100); Potassium 3.9 mmoL/L (3.5-5.1); Sodium 139 mmol/L (136-145)
[2021-04-01 15:03] LABS: Iron 54 ug/dL (37-170)
[2021-04-01 15:12] LABS: Total Iron Binding Capacity 417 ug/dL (265-497)
== END ==
PROVIDERS: Visit Provider Internal Medicine
DX: D64.9 Anemia, unspecified (principal); I10 Essential (primary) hypertension; E78.5 Hyperlipidemia, unspecified; N18.9 Chronic kidney disease, unspecified
CPT/HCPCS: 80048; 83540; 83550; 85025

== ENCOUNTER → 2021-06-08 17:50 | Outpatient (CLI) | payer MEDICARE, SELFPAY ==
[2021-06-08 20:06] LABS: Thyroid Stimulating Hormone 2.85 uIU/mL (0.465-4.68)
== END ==
PROVIDERS: Visit Provider Internal Medicine
DX: E03.9 Hypothyroidism, unspecified (principal)
CPT/HCPCS: 84443

== ENCOUNTER → 2021-06-17 08:03 | Outpatient (CLI) | payer MEDICARE, SELFPAY ==
--- NOTE | 2021-06-17 08:03 | CT_ITS ---
PROCEDURE: CT HIGH RESOLUTION CHEST CLINICAL HISTORY: J45.909 - Unspecified asthma, uncomplicated COMPARISON: CT CT CHEST WO CON from 04/17/2019 TECHNIQUE: Axial images obtained with sagittal and coronal reformats. All CT scans at the facility use one or more dose reduction, viz: automated exposure control, ma/kV adjustment per patient size (including targeted exams where dose is matched to indication, i.e. head), or iterative reconstruction technique. FINDINGS: Inspiration, expiration and prone high-resolution images are obtained and compared to 04/17/2019. There are coronary artery calcifications. No mediastinal or hilar mass or adenopathy. Small hiatal hernia. Scattered small parenchymal and subpleural opacities in the right apex. There are few scattered areas of scarring not significantly changed. No evidence of interstitial pneumonitis or pulmonary fibrosis. There is evidence of old granulomatous disease. The right hemidiaphragm is elevated as before.. No suspicious pulmonary nodule. No acute bony findings Scattered calcifications are present in the breasts and there are surgical clips within the left breast IMPRESSION: 1. No evidence of interstitial lung disease or pulmonary fibrosis. 2. Elevated right hemidiaphragm with other nonacute findings as described above. Dictated by: Noe Cramer MD 06/29/2021 11:13 Noe Cramer MD in [place] 06/29/2021 11:13
== END ==
PROVIDERS: PCP Internal Medicine; Visit Provider Internal Medicine Pulmonary Disease
DX: J45.909 Unspecified asthma, uncomplicated (principal); R06.00 Dyspnea, unspecified
CPT/HCPCS: 71250; 94010

== ENCOUNTER → 2021-07-17 09:59 | Outpatient (CLI) | payer MEDICARE, SELFPAY ==
[2021-07-17 10:57] LABS: Basophils # 0.2 K/mm3 (0-0.2); Basophils % 2.2 % (0.1-2.0); Eosinophils # 0.5 K/mm3 (0.0-0.4); Eosinophils % 6.6 % (0.1-12.0); Hematocrit 36.4 % (37.0-47.0); Lymphocytes # 3.7 K/mm3 (0.7-4.5); Lymphocytes % 45.7 % (10-50); Mean Corpuscular HGB Conc 30.3 g/dL (31.8-35.4); Mean Corpuscular Hemoglobin 29.2 pg (27.0-31.2); Mean Corpuscular Volume 96.3 fl (81-99); Monocytes # 0.4 K/mm3 (0.1-1.0); Monocytes % 4.4 % (1.7-9.3); Neutrophils # 3.3 K/mm3 (1.8-7.8); Neutrophils % 41.1 % (37.0-80.0); Platelet Count 332 K/mm3 (142-424); Red Blood Count 3.77 M/mm3 (4.20-5.40); Red Cell Distribution Width 16.8 % (11.5-17.5); White Blood Count 8.1 K/mm3 (4.8-10.8)
[2021-07-17 12:06] LABS: Alanine Aminotransferase 17 U/L (12-78); Albumin Level 4.2 g/dl (3.5-5.0); Albumin/Globulin Ratio 2.1 (1.1-1.8); Alkaline Phosphatase 81 U/L (38-126); Aspartate Amino Transferase 33 U/L (14-36); Bilirubin,Total 0.6 mg/dl (0.2-1.3); Blood Urea Nitrogen 28 mg/dl (7-17); Calcium 9.4 mg/dl (8.4-10.2); Carbon Dioxide 32 mmol/L (22.0-30.0); Chloride 96 mmol/L (98-107); Estimated Glomerular Filt Rate 17 ml/min (>60); GFR (African American) 21 ML/MIN (>60); Glucose 104 mg/dl (74-100); Sodium 135 mmol/L (136-145); Total Protein,Serum 6.2 g/dl (6.3-8.2); Uric Acid 3.1 mg/dl (2.5-6.2)
[2021-07-17 12:13] LABS: Intact Parathyroid Hormone 253.7 pg/mL (7.5-53.5)
[2021-07-17 13:22] LABS: 25-OH Vitamin D, Total 36.7 ng/mL (30-100)
== END ==
PROVIDERS: Visit Provider Internal Medicine Nephrology
DX: N18.4 Chronic kidney disease, stage 4 (severe) (principal); I12.9 Hypertensive chronic kidney disease with stage 1 through stage 4 chronic kidney disease, or unspecified chronic kidney disease; E03.9 Hypothyroidism, unspecified; E78.5 Hyperlipidemia, unspecified
CPT/HCPCS: 36415; 80053; 82306; 83970; 84550; 85025

== ENCOUNTER → 2021-07-22 09:11 | Outpatient (CLI) | payer MEDICARE, SELFPAY ==
[2021-07-22 09:14] LABS: Microscopic, Urine URINE MICROSCOPIC (MICROSCOPIC)
[2021-07-22 09:25] LABS: Appearance,Urine CLEAR (Clear); Bilirubin,Urine Negative (Negative); Blood, Urine Negative (Negative); Color,Urine YELLOW (Yellow); Glucose,Urine (UA) Negative (Negative); Ketones,Urine Negative (Negative); Leukocyte Esterase,Urine Negative (Negative); Nitrate,Urine Negative (Negative); PH,Urine 6.5 (5.0-8.5); Protein,Urine Negative (Negative); Urobilinogen,Urine 0.2 EU/dl (0.2)
[2021-07-22 09:55] LABS: Bacteria,Urine 3+ /lpf; Squamous Epithelial Cell,Urine Occasional #/hpf (0-5)
== END ==
PROVIDERS: Visit Provider Internal Medicine Nephrology
DX: I12.9 Hypertensive chronic kidney disease with stage 1 through stage 4 chronic kidney disease, or unspecified chronic kidney disease (principal); N18.4 Chronic kidney disease, stage 4 (severe); E03.9 Hypothyroidism, unspecified; E78.5 Hyperlipidemia, unspecified; B96.20 Unspecified Escherichia coli [E. coli] as the cause of diseases classified elsewhere; R82.90 Unspecified abnormal findings in urine
CPT/HCPCS: 81001; 87086; 87088; 87186

== ENCOUNTER → 2021-08-31 10:54 | Outpatient (CLI) | payer MEDICARE, SELFPAY ==
--- NOTE | 2021-08-31 11:00 | XR_ITS ---
FINAL REPORT CLINICAL HISTORY: FALL LAST WEEK, RIGHT FOOT PAIN, C/O GREAT TOE PAIN FINDINGS: RIGHT FOOT FINDINGS: Three views show no evidence of an acute, displaced fracture or dislocation. There are severe degenerative change at the first MTP joint. Mild degenerative changes are seen elsewhere. There is mild hallux valgus deformity. There is a chronic calcification medial to the head of the first metatarsal. Calcaneal spurs are present. IMPRESSION: No acute bony abnormality. Reviewed, Interpreted and Dictated by Trevin Hollis III, MD Transcribed by Nubia Tabares Authenticated by Trevin Hollis III, MD on 08/31/2021 12:38:09 PM [facility]
== END ==
PROVIDERS: PCP Internal Medicine; Visit Provider Internal Medicine
DX: M79.671 Pain in right foot (principal); W19.XXXA Unspecified fall, initial encounter
CPT/HCPCS: 73630

== ENCOUNTER 2021-09-21 11:33 | Emergency (ER) | payer MEDICARE, SELFPAY ==
[2021-09-21] VITALS (15 sets, daily range): BP systolic 119–144; BP diastolic 51–65; PULSE 63–71; RESP 8–18; TEMP 36.6; O2SAT 86–100; BMI 27.4
--- NOTE | 2021-09-21 11:44 | ECG_ITS ---
APPROVED REPORT Exam: Resting ECG HR:67 bpm ECG Measurements Heart Rate 67 AXES MD 162 P 68 QRSd 86 QRS 57 QT 403 T 72 QTc 419 Conclusion SINUS RHYTHM NONSPECIFIC T-WAVE ABNORMALITY BORDERLINE ECG UNCONFIRMED REPORT Electronically signed by : Jhon Ziegler MD 09/23/2021 18:14:24
--- NOTE | 2021-09-21 11:54 | PC.NURSE ---
ED MD at
[2021-09-21 12:12] LABS: Basophils # 0.1 K/mm3 (0-0.2); Basophils % 1.8 % (0.1-2.0); Eosinophils # 0.2 K/mm3 (0.0-0.4); Eosinophils % 2.4 % (0.1-12.0); Hemoglobin 14.2 g/dL (12.2-16.2); Lymphocytes # 2.8 K/mm3 (0.7-4.5); Lymphocytes % 35.4 % (10-50); Mean Corpuscular HGB Conc 31.6 g/dL (31.8-35.4); Mean Corpuscular Hemoglobin 29.5 pg (27.0-31.2); Mean Corpuscular Volume 93.4 fl (81-99); Mean Platelet Volume 8.1 fl (7.4-10.4); Monocytes # 0.4 K/mm3 (0.1-1.0); Monocytes % 5.2 % (1.7-9.3); Neutrophils # 4.4 K/mm3 (1.8-7.8); Neutrophils % 55.3 % (37.0-80.0); Platelet Count 466 K/mm3 (142-424); Red Blood Count 4.82 M/mm3 (4.20-5.40); Red Cell Distribution Width 16.8 % (11.5-17.5); White Blood Count 7.9 K/mm3 (4.8-10.8)
[2021-09-21 12:17] LABS: Chloride 94 mmol/L (98-107); Potassium 3.2 mmoL/L (3.5-5.1); Sodium 134 mmol/L (136-145)
[2021-09-21 12:19] LABS: Alanine Aminotransferase 26 U/L (12-78); Alkaline Phosphatase 95 U/L (38-126); Anion Gap 16.2 mEq/L (5-15); Aspartate Amino Transferase 48 U/L (14-36); Bilirubin,Total 1.3 mg/dl (0.2-1.3); Blood Urea Nitrogen 47 mg/dl (7-17); Carbon Dioxide 27 mmol/L (22.0-30.0); Estimated Glomerular Filt Rate 15 ml/min (>60); GFR (African American) 18 ML/MIN (>60)
[2021-09-21 12:20] LABS: Albumin Level 4.6 g/dl (3.5-5.0); Albumin/Globulin Ratio 1.5 (1.1-1.8); Calcium 9.6 mg/dl (8.4-10.2); Globulin 3.1 g/dL (1.3-3.2); Glucose 139 mg/dl (74-100); Lipase 251 U/L (23-300); Magnesium 1.7 mg/dl (1.6-2.3); Total Protein,Serum 7.7 g/dl (6.3-8.2)
[2021-09-21 12:23] LABS: Microscopic, Urine URINE MICROSCOPIC (MICROSCOPIC)
[2021-09-21 12:29] LABS: Appearance,Urine CLOUDY (Clear); Blood, Urine TRACE-I (Negative); Color,Urine YELLOW (Yellow); Glucose,Urine (UA) Negative (Negative); Ketones,Urine Negative (Negative); Leukocyte Esterase,Urine 2+ (Negative); Nitrate,Urine Negative (Negative); PH,Urine 5.5 (5.0-8.5); Protein,Urine Negative (Negative); Urobilinogen,Urine 0.2 EU/dl (0.2)
[2021-09-21 12:46] LABS: Bilirubin,Urine 1+ (Negative)
[2021-09-21 12:47] LABS: Bacteria,Urine Trace /lpf; WBC,Urine 20-50 #/hpf (0-3)
[2021-09-21 13:26] LABS: Coronavirus 19, PCR Not Detected (NotDetected); Influenza A, PCR Not Detected (NotDetected); Influenza B, PCR Not Detected (NotDetected)
--- NOTE | 2021-09-21 13:59 | PC.NURSE ---
Patient to restroom with tech for assistance
--- NOTE | 2021-09-21 14:06 | PC.NURSE ---
Pt up to restroom via wheelchair
--- NOTE | 2021-09-21 14:48 | HMH.EDGENADL ---
ED Disposition Clinical Impression: Gastroenteritis Disposition: Home, Self-Care Condition on Discharge: Good Instructions: DI for Diarrhea and Traveler's Diarrhea -- Adult, DI for Diarrhea and Traveler's Diarrhea -- Child, DI for Nausea -- Adult, DI for Nausea -- Child Additional Instructions: Please return to the ED with any new or worsening symptoms, take your antibiotic twice a day, follow-up with Dr. Ramirez as soon as possible Prescriptions: Nitrofurantoin Monohyd/M-Cryst [Macrobid 100 mg Capsule] 100 mg PO BID #10 cap Transmission Status: Received by [id number] Ondansetron [Zofran 4mg ODT] 4 mg PO TIDP PRN #12 tab PRN Reason: Nausea Transmission Status: Received by [id number] Referrals: Tayo Ramirez [Primary Care Provider] - - Critical Care Critical Care Time: No Attestation: On 09/21/21, the high probability of a clinically significant, sudden or life threatening deterioration of the following system(s) required my full and direct attention, intervention and personal management. The time I documented below is in addition to time spent performing reported procedures but includes the following listed in this critical care notation. Medical Decision Making - Medical Records Medical records reviewed: Yes: I reviewed the patient's medical records. - William Inquiry Pt receiving controlled substance: No Vital Signs: 09/21/21 11:36 09/21/21 12:00 09/21/21 12:30 Temperature 97.9 F Temperature Source Oral Pulse Rate 64 69 Pulse Rate [Right] 71 Respiratory Rate 18 18 18 Blood Pressure 123/62 126/51 L Blood Pressure [Right Arm] 136/65 Blood Pressure Mean 105 76 Blood Pressure Mean [Right Arm] 88 Blood Pressure Source Blood Pressure Source [Right Arm] Automatic Cuff Blood Pressure Position Blood Pressure Position [Right Arm] Supine 02 Sat by Pulse Oximetry 99 100 100 Oxygen Delivery Method Room Air 09/21/21 13:00 09/21/21 13:30 09/21/21 13:45 Temperature Temperature Source Pulse Rate 69 63 68 Pulse Rate [Right] Respiratory Rate 18 8 L 10 L Blood Pressure 135/60 Blood Pressure [Right Arm] Blood Pressure Mean 75 Blood Pressure Mean [Right Arm] Blood Pressure Source Blood Pressure Source [Right Arm] Blood Pressure Position Blood Pressure Position [Right Arm] 02 Sat by Pulse Oximetry 100 86 L 99 Oxygen Delivery Method 09/21/21 14:03 09/21/21 14:13 09/21/21 14:15 Temperature Temperature Source Pulse Rate 68 67 Pulse Rate [Right] Respiratory Rate 17 16 14 Blood Pressure 144/64 H Blood Pressure [Right Arm] Blood Pressure Mean 73 Blood Pressure Mean [Right Arm] Blood Pressure Source Blood Pressure Source [Right Arm] Blood Pressure Position Blood Pressure Position [Right Arm] 02 Sat by Pulse Oximetry 100 100 Oxygen Delivery Method 09/21/21 14:30 09/21/21 14:45 09/21/21 15:00 Temperature Temperature Source Pulse Rate 66 64 65 Pulse Rate [Right] Respiratory Rate 9 L 11 L 14 Blood Pressure 119/61 125/63 Blood Pressure [Right Arm] Blood Pressure Mean 74 76 Blood Pressure Mean [Right Arm] Blood Pressure Source Blood Pressure Source [Right Arm] Blood Pressure Position Blood Pressure Position [Right Arm] 02 Sat by Pulse Oximetry 99 99 100 Oxygen Delivery Method 09/21/21 15:15 09/21/21 15:30 09/21/21 16:05 Temperature 97.9 F Temperature Source Oral Pulse Rate 65 66 66 Pulse Rate [Right] Respiratory Rate 14 13 13 Blood Pressure 122/61 122/61 Blood Pressure [Right Arm] Blood Pressure Mean 75 Blood Pressure Mean [Right Arm] Blood Pressure Source Automatic Cuff Blood Pressure Source [Right Arm] Blood Pressure Position Sitting Blood Pressure Position [Right Arm] 02 Sat by Pulse Oximetry 99 99 Oxygen Delivery Method Room Air - Lab Data Lab Results 09/21/21 11:54: WBC 7.9, RBC 4.82, Hgb 14.2, Hc
--- NOTE | 2021-09-21 15:01 | PC.NURSE ---
ED MD at for update on POC
--- NOTE | 2021-09-21 15:56 | PC.NURSE ---
Patient is ambulatory to restroom without any complications
--- NOTE | 2021-09-21 15:58 | PC.NURSE ---
patient back to ED room 7 without any complications
== END 2021-09-21 16:07 | disposition home or self-care (01) ==
PROVIDERS: Emergency Provider Student in an Organized Health Care Education/Training Program; PCP Internal Medicine
DX: K52.9 Noninfective gastroenteritis and colitis, unspecified (principal); E86.0 Dehydration; I10 Essential (primary) hypertension; K21.9 Gastro-esophageal reflux disease without esophagitis; Z87.891 Personal history of nicotine dependence; N39.0 Urinary tract infection, site not specified
CPT/HCPCS: 80053; 81001; 83690; 83735; 85025; 87086; 87088; 87186; 93005; 96360; 96361; 96365; 96366; 99284; C9803; U0003; U0005

== ENCOUNTER 2022-02-27 13:30 | Emergency (ER) | payer MEDICARE, SELFPAY ==
[2022-02-27] VITALS (7 sets, daily range): BP systolic 0–146; BP diastolic 0–89; PULSE 0–74; RESP 0–18; TEMP -17.7–36.9; O2SAT 0–100; BMI 26.6
--- NOTE | 2022-02-27 13:34 | CT_ITS ---
PROCEDURE INFORMATION: Exam: CT Head Without Contrast Exam date and time: 02/27/2022 1:41 PM Age: 82 years old Clinical indication: Injury or trauma; Fall; Blunt trauma (contusions or hematomas); Without loss of consciousness; Additional info: Trauma-- fall -- PT tried to set up during scan had to repeat scanogram and scan TECHNIQUE: Imaging protocol: Computed tomography of the head without contrast. Radiation optimization: All CT scans at this facility use at least one of these dose optimization techniques: automated exposure control; mA and/or kV adjustment per patient size (includes targeted exams where dose is matched to clinical indication); or iterative reconstruction. COMPARISON: HEADWO CT head/brain wo con 11/06/2018 3:29 PM FINDINGS: Brain: No intracranial hemorrhage. No evidence of acute territorial infarct or cerebral edema. Mild prominence of the cortical sulci consistent with age-appropriate intracerebral volume loss. Periventricular white matter tract changes consistent with microvascular disease. No mass effect or midline shift. Cerebral ventricles: No ventriculomegaly. Paranasal sinuses: Visualized sinuses are unremarkable. No fluid levels. Mastoid air cells: Visualized mastoid air cells are well aerated. Bones/joints: Unremarkable. No acute fracture. Soft tissues: Unremarkable. IMPRESSION: No evidence of acute intracranial hemorrhage.
--- NOTE | 2022-02-27 13:36 | HMH.EDFALL ---
Discharge Plan Disposition Patient Disposition: Home, Self-Care Condition: Good Chief Complaint: Syncope Prescriptions Prescriptions: New cefdinir 300 mg capsule 300 mg PO BID 10 Days Qty: 20 0RF No Action Zyrtec 10 mg capsule 5 mg PO DAILY PRN (Reason: allergy symptoms) Qty: 30 4RF Advair HFA 115-21 mcg/actuation HFA aerosol inhaler 2 puff INHALATION BID 90 Days Qty: 12 3RF albuterol sulfate 90 mcg/actuation HFA aerosol inhaler 1 inh INHALATION QID PRN (Reason: shortness of breath or wheezing) Qty: 8.5 3RF levocetirizine 5 mg tablet 2.5 mg PO DAILY PRN (Reason: allergy symptoms) Qty: 60 1RF ondansetron HCl 4 mg tablet 4 mg PO QID PRN losartan 50 mg tablet 50 mg PO DAILY gabapentin 100 mg capsule 100 mg PO DAILY trazodone 50 mg tablet 50 mg PO DAILY allopurinol 100 mg tablet 100 mg PO DAILY oxybutynin chloride 10 mg tablet extended release 24hr PO amlodipine 2.5 mg tablet 2.5 mg PO DAILY calcitriol 0.25 mcg capsule 0.25 mcg PO DAILY furosemide 20 mg tablet 20 mg PO DAILY pantoprazole 40 mg tablet,delayed release (DR/EC) PO lovastatin 40 MG tablet 1 tab PO DAILY levothyroxine 50 MCG tablet 50 mcg PO DAILY tramadol 50 MG tablet 50 mg PO TID PRN (Reason: Muscle Pain) 3 Days Qty: 10 0RF ondansetron 4 MG tablet,disintegrating 4 mg PO TIDP PRN (Reason: Nausea) Qty: 12 0RF nitrofurantoin monohyd/m-cryst 100 MG capsule 100 mg PO BID Qty: 10 0RF Referrals Follow up/Referrals: Provider,Referral, MD [Primary Care Provider] - 7-14 days Activity Restrictions/Add. Instructions Additional Instructions/Restrictions: follow up PCP, return for worse Clinical Impressions Clinical Impression: Dehydration, Acute UTI (urinary tract infection) Instructions Patient Instructions: Chronic Kidney Disease, DI for Urinary Tract Infection (UTI), Dizziness, Nonvertigo Discharge ED Provider: Fuentes James Fall HPI General Chief Complaint: Syncope Stated Complaint: syncope Time Seen by Provider: 02/27/22 13:34 Mode of Arrival: EMS Source of Information: Patient Limitations: No Limitations History of Present Illness HPI Narrative: fall from standing at home, unknown meechanism, poss syncope, says she got dizzy, left forehead and left thumb injury MD complaint: fall Onset (ago): minute(s) Fall from: standing Fall witnessed: yes, by family Place fall occurred: home Loss of consciousness: unsure Prolonged down time: no Symptoms prior to fall: dizziness Location of injury: head Severity: mild Quality: sharp Associated symptoms (after fall): headache Related Data Home Medications Medication Instructions Recorded Confirmed levothyroxine 50 mcg tablet 50 mcg PO DAILY THYROID 11/28/17 12/23/21 lovastatin 40 mg tablet 1 tab PO DAILY Cholesterol 11/28/17 12/23/21 allopurinol 100 mg tablet 100 mg PO DAILY 04/24/19 12/23/21 gabapentin 100 mg capsule 100 mg PO DAILY 04/24/19 12/23/21 losartan 50 mg tablet 50 mg PO DAILY 04/24/19 12/23/21 ondansetron HCl 4 mg tablet 4 mg PO QID PRN 04/24/19 12/23/21 trazodone 50 mg tablet 50 mg PO DAILY 04/24/19 12/23/21 oxybutynin chloride 10 mg mg PO 02/28/20 12/23/21 tablet,extended release 24 hr amlodipine 2.5 mg tablet 2.5 mg PO DAILY 04/22/21 12/23/21 calcitriol 0.25 mcg capsule 0.25 mcg PO DAILY 04/22/21 12/23/21 furosemide 20 mg tablet 20 mg PO DAILY 04/22/21 12/23/21 pantoprazole 40 mg tablet,delayed mg PO 04/22/21 12/23/21 release Previous Rx's Medication Instructions Recorded tramadol 50 mg tablet 50 mg PO TID PRN Muscle Pain 3 04/22/19 days #10 tabs cetirizine 10 mg capsule (Zyrtec) 5 mg PO DAILY PRN allergy symptoms 09/22/20 #30 caps nitrofurantoin 100 mg PO BID #10 caps 09/21/21 monohydrate/macrocrystals 100 mg capsule ondansetron 4 mg disintegrating 4 mg PO TIDP PRN Nausea #12 tabs 09/21/21 tablet albuterol sulfate 90 mc
--- NOTE | 2022-02-27 13:37 | ECG_ITS ---
APPROVED REPORT Exam: Resting ECG HR:65 bpm ECG Measurements Heart Rate 65 AXES OR 148 P 53 QRSd 78 QRS 15 QT 398 T 28 QTc 409 Conclusion SINUS RHYTHM LOW QRS VOLTAGE IN PRECORDIAL LEADS [QRS DEFLECTION < 1.0 mV IN CHEST LEADS] BORDERLINE ECG UNCONFIRMED REPORT Electronically signed by : Jhon Ziegler MD 03/04/2022 11:24:17
--- NOTE | 2022-02-27 13:38 | XR_ITS ---
PROCEDURE INFORMATION: Exam: XR Left Hand Exam date and time: 02/27/2022 2:03 PM Age: 82 years old Clinical indication: Injury or trauma; Fall; Blunt trauma (contusions or hematomas); Hand; Left TECHNIQUE: Imaging protocol: Radiologic exam of the Left hand. Views: 3 or more views. COMPARISON: No relevant prior studies available. FINDINGS: Bones/joints: Generalized osteopenia. Mild narrowing at the level of the PIP and DIP joints as well as the 1st carpal metacarpal articulation. Osteopenia. Soft tissues: Calcification in the region of the triangular fibrocartilage complex. IMPRESSION: 1. No evidence of acute osseous injury. 2. Mild degenerative osteoarthritis.
[2022-02-27 14:23] LABS: Microscopic, Urine URINE MICROSCOPIC (MICROSCOPIC)
[2022-02-27 14:26] LABS: Appearance,Urine SL CLOUDY (Clear); Bilirubin,Urine Negative (Negative); Blood, Urine Negative (Negative); Color,Urine YELLOW (Yellow); Glucose,Urine (UA) Negative (Negative); Ketones,Urine Negative (Negative); Leukocyte Esterase,Urine 1+ (Negative); Nitrate,Urine Negative (Negative); Protein,Urine Negative (Negative); Urobilinogen,Urine 0.2 EU/dl (0.2)
[2022-02-27 14:29] LABS: Basophils # 0.1 K/mm3 (0-0.2); Eosinophils # 0.4 K/mm3 (0.0-0.4); Eosinophils % 4.5 % (0.1-12.0); Hemoglobin 12.2 g/dL (12.2-16.2); Lymphocytes # 2.4 K/mm3 (0.7-4.5); Lymphocytes % 27.1 % (10-50); Mean Corpuscular HGB Conc 30.4 g/dL (31.8-35.4); Mean Corpuscular Hemoglobin 29.5 pg (27.0-31.2); Mean Corpuscular Volume 97.1 fl (81-99); Monocytes # 0.5 K/mm3 (0.1-1.0); Monocytes % 5.8 % (1.7-9.3); Neutrophils # 5.4 K/mm3 (1.8-7.8); Neutrophils % 61.6 % (37.0-80.0); Platelet Count 378 K/mm3 (142-424); Red Blood Count 4.12 M/mm3 (4.20-5.40); Red Cell Distribution Width 16.9 % (11.5-17.5); White Blood Count 8.8 K/mm3 (4.8-10.8)
--- NOTE | 2022-02-27 14:30 | PC.NURSE ---
pt ambulated to the restroom
[2022-02-27 14:32] LABS: Chloride 99 mmol/L (98-107); Sodium 141 mmol/L (136-145)
[2022-02-27 14:35] LABS: Alanine Aminotransferase 21 U/L (12-78); Albumin Level 4.6 g/dl (3.5-5.0); Albumin/Globulin Ratio 1.6 (1.1-1.8); Alkaline Phosphatase 107 U/L (38-126); Aspartate Amino Transferase 38 U/L (14-36); Bilirubin,Total 0.9 mg/dl (0.2-1.3); Blood Urea Nitrogen 38 mg/dl (7-17); Carbon Dioxide 32 mmol/L (22.0-30.0); Estimated Glomerular Filt Rate 18 ml/min (>60); GFR (African American) 22 ML/MIN (>60); Globulin 2.8 g/dL (1.3-3.2); Total Protein,Serum 7.4 g/dl (6.3-8.2)
[2022-02-27 14:36] LABS: Calcium 9.5 mg/dl (8.4-10.2); Glucose 121 mg/dl (74-100)
[2022-02-27 14:43] LABS: Bacteria,Urine 2+ /lpf; RBC,Urine Occasional #/hpf (0-3)
[2022-02-27 14:44] LABS: Mucus,Urine Trace /lpf; WBC,Urine 20-50 #/hpf (0-3)
--- NOTE | 2022-02-27 15:15 | PC.NURSE ---
PT AMBULTING UP TO BR
--- NOTE | 2022-02-27 16:00 | PC.NURSE ---
pt refusing vitals
--- NOTE | 2022-02-27 16:15 | PC.NURSE ---
placed call to grand daughter to get transportation home
--- NOTE | 2022-02-27 16:18 | PC.NURSE ---
grand daughter advised it would be about an hour before anyone can get here to get her.
--- NOTE | 2022-02-27 16:25 | PC.NURSE ---
PT STARTED YELLING AT US SAID SHE WAS GONNA WALK HOME , WENT OUTSIDE AFTER HER TALKED HER INTO COMING BACK IN AND TOLD HER SHE WAS NOT GOING BE ABLE TO LEAVE UNLESS SOMEONE CAME AFTER HER, SHE WENT BACK AND LAID DOWN REFUSES TO HAVE VITALS TAKEN , AND DEMANDS IV TO BE TAKEN OUT. IV REMOVED AND PT LYING QUIETLY
--- NOTE | 2022-02-27 17:12 | PC.NURSE ---
pt called a friend to come get her
--- NOTE | 2022-02-27 17:33 | PC.NURSE ---
pt refusing d/c vitals
== END 2022-02-27 17:36 | disposition home or self-care (01) ==
PROVIDERS: Emergency Provider Emergency Medicine
DX: E86.0 Dehydration (principal); N39.0 Urinary tract infection, site not specified; R55 Syncope and collapse; Z79.899 Other long term (current) drug therapy; Z88.6 Allergy status to analgesic agent; Z88.1 Allergy status to other antibiotic agents; Z88.5 Allergy status to narcotic agent; Z88.0 Allergy status to penicillin; Z91.013 Allergy to seafood; Z88.2 Allergy status to sulfonamides; Z91.018 Allergy to other foods
CPT/HCPCS: 70450; 73130; 80053; 81001; 85025; 87086; 87088; 87186; 93005; 96365; 96367; 99285; J0696

== ENCOUNTER → 2022-03-01 11:49 | Outpatient (CLI) | payer MEDICARE, SELFPAY ==
--- NOTE | 2022-03-01 12:08 | ECG_ITS ---
APPROVED REPORT Exam: Resting ECG HR:63 bpm ECG Measurements Heart Rate 63 AXES MN 147 P 52 QRSd 92 QRS 19 QT 414 T 31 QTc 421 Conclusion SINUS RHYTHM LOW QRS VOLTAGE IN PRECORDIAL LEADS [QRS DEFLECTION < 1.0 mV IN CHEST LEADS] OTHERWISE A ECG Electronically signed by : Tayo Ramirez MD 03/01/2022 12:27:50
[2022-03-01 12:54] LABS: Troponin I < 0.01 ng/ml (0.00-0.034)
== END ==
PROVIDERS: PCP Internal Medicine; Visit Provider Internal Medicine
DX: R07.89 Other chest pain (principal)
CPT/HCPCS: 36415; 84484; 93005

== ENCOUNTER → 2022-03-27 11:28 | Outpatient (CLI) | payer MEDICARE, SELFPAY ==
[2022-03-27 11:35] LABS: Adenovirus F 40/41, stool Not Detected (NotDetected); Astrovirus Not Detected (NotDetected); Campylobacter Not Detected (NotDetected); Clostridium Difficile A/B, PCR Not Detected (NotDetected); Cryptosporidium Not Detected (NotDetected); Cyclospora Cayetanesis Not Detected (NotDetected); Entamoeba histolytica Not Detected (NotDetected); Enteroaggregative E coli Not Detected (NotDetected); Enteropathogenic E coli Not Detected (NotDetected); Enterotoxigenic E coli Not Detected (NotDetected); Giardia lamblia Not Detected (NotDetected); Norovirus Not Detected (NotDetected); Plesimonas Shigalloides, PCR Not Detected (NotDetected); Rotavirus A Not Detected (NotDetected); Salmonella, PCR Not Detected (NotDetected); Sapovirus Not Detected (NotDetected); Shiga-like toxin E coli Not Detected (NotDetected); Shigella Enterovasive E coli Not Detected (NotDetected); Vibrio Cholerae Not Detected (NotDetected); Vibrio, PCR Not Detected (NotDetected); Yersinia Entercolitica, PCR Not Detected (NotDetected)
== END ==
PROVIDERS: PCP Internal Medicine; Visit Provider Internal Medicine
DX: K52.89 Other specified noninfective gastroenteritis and colitis (principal)
CPT/HCPCS: 87177; 87205; 87506

== ENCOUNTER → 2022-03-29 10:08 | Outpatient (CLI) | payer MEDICARE, SELFPAY ==
--- NOTE | 2022-03-29 10:08 | MM_ITS ---
PROCEDURE INFORMATION: Exam: MG Bilateral Screening 3D Mammography Exam date and time: 03/29/2022 10:04 AM Age: 82 years old Clinical indication: Screening examination. Personal history of left excisional biopsy in 2017 with history of atypical ductal hyperplasia. TECHNIQUE: Imaging protocol: Bilateral Screening tomosynthesis and 2D mammography including computer-aided detection (CAD) when performed. COMPARISON: 1. MG MM DIG SCREENING MAMM BI W/CAD 03/23/2021 10:21 AM 2. MG MM DIG SCREENING MAMM BI W/CAD 03/21/2020 1:39 PM 3. MG MM DIG SCREENING MAMM BI W/CAD 03/09/2019 8:56 AM 4. MG SCBI MM Dig screening mamm BI w/CAD 03/07/2018 8:47 AM FINDINGS: MAMMOGRAPHY: Breast composition: There are scattered areas of fibroglandular density. Mass: None. Architectural distortion: Mild architectural distortion and surgical clips in the left inner lower breast with history of excisional biopsy. Calcifications: No suspicious calcifications. Asymmetric density: None. Skin thickening: None. Axillary adenopathy: None. Other: Left biopsy clip. IMPRESSION: No mammographic evidence of malignancy. Annual screening is recommended unless otherwise clinically indicated. ASSESSMENT: BI-RADS Category 2: Benign
== END ==
PROVIDERS: PCP Internal Medicine; Visit Provider Surgery
DX: Z12.31 Encounter for screening mammogram for malignant neoplasm of breast (principal)
CPT/HCPCS: 77063; 77067

== ENCOUNTER → 2022-05-31 11:22 | Outpatient (CLI) | payer MEDICARE, MEDICAID, SELFPAY | PROVIDERS: PCP Internal Medicine; Visit Provider Internal Medicine | DX: Z20.822 Contact with and (suspected) exposure to COVID-19 (principal) | CPT/HCPCS: C9803; U0003; U0005 ==

== ENCOUNTER 2022-10-14 09:24 | Day surgery (SDC) | payer MEDICARE, MEDICAID, SELFPAY ==
[2022-10-14 10:31] VITALS: BP 147/63; PULSE 80; RESP 18; TEMP 36.7; O2SAT 94; BMI 27.8
[2022-10-14 11:25] VITALS: BP 126/66; PULSE 67; RESP 17; TEMP 36.9; O2SAT 93
[2022-10-14 11:32] VITALS: BP 126/66; PULSE 67; RESP 17; O2SAT 93
--- NOTE | 2022-10-14 11:40 | EXP.OP.NOTE ---
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 Her left hand was prepped and draped in a sterile fashion. After infiltration with local anesthetic an elliptical incision was made around the prior excision scar with at least an additional 5 mm margin. The deep subcutaneous tissue was dissected sharply. The proximal and thenar margin were marked with dyed suture (short proximal/long thenar). Once the lesion was excised in toto it was passed off for pathologic evaluation. Electrocautery was utilized to achieve hemostasis. Skin was reapproximated with interrupted 5-0 nylon. Dressings were applied and the patient was discharged in stable condition. Condition: stable Disposition: no change Specimens:: Left hand reexcision squamous cell carcinoma Complications:: No immediate
== END 2022-10-14 11:51 | disposition home or self-care (01) ==
PROVIDERS: PCP Internal Medicine; Visit Provider Surgery
DX: C44.629 Squamous cell carcinoma of skin of left upper limb, including shoulder (principal)

== ENCOUNTER 2022-10-15 08:22 | Inpatient (IN) | payer MEDICARE, MEDICAID, SELFPAY ==
[2022-10-15] VITALS (13 sets, daily range): BP systolic 139–162; BP diastolic 55–79; PULSE 73–81; RESP 14–19; TEMP 36.9–37.7; O2SAT 94–99; BMI 27.8; BMI 27.6
--- NOTE | 2022-10-15 08:25 | PC.NURSE ---
[id number] dr calabrese at bedside
--- NOTE | 2022-10-15 08:26 | PC.NURSE ---
EDUIN DAS at
--- NOTE | 2022-10-15 08:28 | XR_ITS ---
FINAL REPORT CLINICAL HISTORY: cough, yellow sputum COMPARISON: 04/22/2019 FINDINGS: A single portable view of the chest was obtained. The heart size and pulmonary vascularity are within normal limits. The mediastinum is within normal limits. There is lateral right lung base opacity which may represent atelectasis or pneumonia. The bony thorax is intact. IMPRESSION: Lateral right lung base atelectasis or pneumonia. Reviewed, Interpreted and Dictated by Trevin Hollis III, MD Transcribed by Maggie Clancy Authenticated and [facility]
--- NOTE | 2022-10-15 08:31 | HMH.EDGENADL ---
Discharge Plan Disposition Patient Disposition: Admitted As Inpatient Condition: Fair Chief Complaint: Nausea/Vomiting/Diarrhea Prescriptions Prescriptions: No Action Zyrtec 10 mg capsule 5 mg PO DAILY PRN (Reason: allergy symptoms) Qty: 30 4RF albuterol sulfate 90 mcg/actuation HFA aerosol inhaler 1 inh INHALATION QID PRN (Reason: shortness of breath or wheezing) Qty: 8.5 3RF levocetirizine 5 mg tablet 2.5 mg PO DAILY PRN (Reason: allergy symptoms) Qty: 60 1RF losartan 50 mg tablet 50 mg PO DAILY gabapentin 100 mg capsule 100 mg PO DAILY trazodone 50 mg tablet 50 mg PO DAILY allopurinol 100 mg tablet 100 mg PO DAILY oxybutynin chloride 10 mg tablet extended release 24hr 10 mg PO DAILY amlodipine 2.5 mg tablet 2.5 mg PO DAILY calcitriol 0.25 mcg capsule 0.25 mcg PO DAILY furosemide 20 mg tablet 20 mg PO DAILY pantoprazole 40 mg tablet,delayed release (DR/EC) 40 mg PO DAILY lovastatin 40 MG tablet 1 tab PO DAILY levothyroxine 50 MCG tablet 50 mcg PO DAILY tramadol 50 MG tablet 50 mg PO TID PRN (Reason: Muscle Pain) 3 Days Qty: 10 0RF nitrofurantoin monohyd/m-cryst 100 MG capsule 100 mg PO BID fluticasone propion-salmeterol [Advair HFA] 115-21 mcg/actuation HFA aerosol inhaler 2 puff INHALATION BID ondansetron 4 MG tablet,disintegrating 4 mg PO TIDP PRN (Reason: Nausea) Qty: 12 0RF Clinical Impressions Clinical Impression: Pneumonia, CKD (chronic kidney disease) Discharge ED Provider: Shivam Tracey General Adult HPI General Chief complaint: Nausea/Vomiting/Diarrhea Stated complaint: nausea, vomiting Time Seen by Provider: 10/15/22 08:31 History of Present Illness HPI narrative: Patient is a 82-year-old female past medical history of stage IV CKD, hypertension, hyperlipidemia who presents emergency department for evaluation of cough, vomiting and diarrhea. Onset was acute, over the last 6 hours. Nonbloody, multiple episodes of vomiting and diarrhea. Patient has associated epigastric discomfort with retching and additional productive cough. Patient recently had a lesion removed from her left wrist yesterday under local anesthesia. No other acute complaints at this time. Related Data Home Medications Medication Instructions Recorded Confirmed levothyroxine 50 mcg tablet 50 mcg PO DAILY THYROID 11/28/17 10/14/22 lovastatin 40 mg tablet 1 tab PO DAILY Cholesterol 11/28/17 10/14/22 allopurinol 100 mg tablet 100 mg PO DAILY GOUT 04/24/19 10/14/22 gabapentin 100 mg capsule 100 mg PO DAILY Pain 04/24/19 10/14/22 losartan 50 mg tablet 50 mg PO DAILY BP 04/24/19 10/14/22 trazodone 50 mg tablet 50 mg PO DAILY . 04/24/19 10/14/22 oxybutynin chloride 10 mg 10 mg PO DAILY . 02/28/20 10/14/22 tablet,extended release 24 hr amlodipine 2.5 mg tablet 2.5 mg PO DAILY BP 04/22/21 10/14/22 calcitriol 0.25 mcg capsule 0.25 mcg PO DAILY . 04/22/21 10/14/22 furosemide 20 mg tablet 20 mg PO DAILY Fluid 04/22/21 10/14/22 pantoprazole 40 mg tablet,delayed 40 mg PO DAILY Reflux/Acid reflux 04/22/21 10/14/22 release fluticasone propionate 115 2 puff inhalation BID Asthma 10/14/22 10/14/22 mcg-salmeterol 21 mcg/actuation HFA inhaler (Advair HFA) nitrofurantoin 100 mg PO BID . 10/14/22 10/14/22 monohydrate/macrocrystals 100 mg capsule Previous Rx's Medication Instructions Recorded tramadol 50 mg tablet 50 mg PO TID PRN Muscle Pain 3 04/22/19 days #10 tabs cetirizine 10 mg capsule (Zyrtec) 5 mg PO DAILY PRN allergy symptoms 09/22/20 #30 caps ondansetron 4 mg disintegrating 4 mg PO TIDP PRN Nausea #12 tabs 09/21/21 tablet albuterol sulfate 90 mcg/actuation 1 inh inhalation QID PRN shortness 12/23/21 aerosol inhaler of breath or wheezing #8.5 grams levocetirizine 5 mg tablet 2.5 mg PO DAILY PRN allergy 12/23/21 symptoms #60 tabs Allergies Allergy/AdvReac Type Severity Reaction St
[2022-10-15 08:40] LABS: Coronavirus 19, PCR Not Detected (NotDetected); Influenza A, PCR Not Detected (NotDetected); Influenza B, PCR Not Detected (NotDetected)
--- NOTE | 2022-10-15 08:40 | PC.NURSE ---
PT GIVEN ICE WATER AT THIS TIME, TOLERATING WELL
[2022-10-15 08:43] LABS: Chloride 95 mmol/L (98-107); Potassium 4.5 mmoL/L (3.5-5.1); Sodium 130 mmol/L (136-145)
--- NOTE | 2022-10-15 08:43 | PC.NURSE ---
XR AT BEDSIDE
[2022-10-15 08:45] LABS: Alanine Aminotransferase 18 U/L (12-78); Alkaline Phosphatase 125 U/L (38-126); Aspartate Amino Transferase 34 U/L (14-36); Bilirubin,Total 0.8 mg/dl (0.2-1.3); Blood Urea Nitrogen 35 mg/dl (7-17); Creatinine Clearance Estimated 20 mL/min (50-200); Estimated Glomerular Filt Rate 19 ml/min (>60); GFR (African American) 23 ML/MIN (>60)
[2022-10-15 08:46] LABS: Albumin Level 4.1 g/dl (3.5-5.0); Albumin/Globulin Ratio 1.2 (1.1-1.8); Anion Gap 15.5 mEq/L (5-15); Calcium 9.1 mg/dl (8.4-10.2); Carbon Dioxide 24 mmol/L (22.0-30.0); Globulin 3.4 g/dL (1.3-3.2); Glucose 112 mg/dl (74-100); Lipase 28 U/L (23-300); Total Protein,Serum 7.5 g/dl (6.3-8.2)
--- NOTE | 2022-10-15 08:51 | ECG_ITS ---
APPROVED REPORT Exam: Resting ECG HR:73 bpm ECG Measurements Heart Rate 73 AXES TX 129 P 48 QRSd 86 QRS 29 QT 384 T 47 QTc 410 Conclusion SINUS RHYTHM NORMAL ECG UNCONFIRMED REPORT Electronically signed by : Jhon Ziegler MD 10/16/2022 08:34:52
[2022-10-15 08:53] LABS: Basophils # 0.1 K/mm3 (0-0.2); Basophils % 0.4 % (0.1-2.0); Eosinophils # 0.3 K/mm3 (0.0-0.4); Eosinophils % 1.4 % (0.1-12.0); Hematocrit 35.5 % (37.0-47.0); Hemoglobin 11.1 g/dL (12.2-16.2); Lymphocytes # 2.2 K/mm3 (0.7-4.5); Lymphocytes % 12.4 % (10-50); Mean Corpuscular HGB Conc 31.4 g/dL (31.8-35.4); Mean Corpuscular Hemoglobin 29.1 pg (27.0-31.2); Mean Corpuscular Volume 92.7 fl (81-99); Mean Platelet Volume 8.2 fl (7.4-10.4); Monocytes % 5.8 % (1.7-9.3); Neutrophils # 14.1 K/mm3 (1.8-7.8); Platelet Count 356 K/mm3 (142-424); Red Blood Count 3.82 M/mm3 (4.20-5.40); Red Cell Distribution Width 16.7 % (11.5-17.5); White Blood Count 17.7 K/mm3 (4.8-10.8)
[2022-10-15 08:54] LABS: MANUAL DIFFERENTIAL MANUAL DIFFERENTIAL (MANUAL DIFF)
[2022-10-15 08:58] LABS: Troponin I 0.02 ng/ml (0.00-0.034)
--- NOTE | 2022-10-15 09:05 | PC.NURSE ---
PT UNABLE TO PROVIDE UA AT THIS TIME. CALL LIGHT WITHIN REACH, NO NEEDS AT THIS TIME
[2022-10-15 09:21] LABS: Eosinophils % 1 % (0-3); Lymphocytes % 10 % (10-50); Monocytes % 7 % (2-9); Neutrophils % 82 % (42-76); Platelet Estimate Normal; RBC Morphology Normal; Total Cells Counted 100
[2022-10-15 09:26] LABS: Microscopic, Urine URINE MICROSCOPIC (MICROSCOPIC)
--- NOTE | 2022-10-15 09:27 | PC.NURSE ---
calling house for admission, waiting for bed assignment
--- NOTE | 2022-10-15 09:28 | PC.NURSE ---
no need for bc at this time per MD, states if pt is tachycardia at this time, not needed
[2022-10-15 09:29] LABS: Appearance,Urine Slightly Cloudy (Clear); Bilirubin,Urine Negative (Negative); Blood, Urine Trace (Negative); Color,Urine Yellow (Yellow); Glucose,Urine (UA) Negative (Negative); Ketones,Urine Negative (Negative); Nitrate,Urine Negative (Negative); Protein,Urine Trace (Negative); Urobilinogen,Urine 0.2 EU/dl (0.2)
[2022-10-15 09:30] LABS: Bacteria,Urine Trace /lpf; Hyaline Casts,Urine Occasional #/lpf (0); Leukocyte Esterase,Urine 2+ (Negative)
--- NOTE | 2022-10-15 09:31 | PC.NURSE ---
DR WELLS AT BEDSIDE TO UPDATE PT ON POC AND ADMISSION
[2022-10-15 09:34] LABS: Lactic Acid 1.2 mmol/L (0.7-2.1)
--- NOTE | 2022-10-15 10:06 | PC.NURSE ---
Dr. Wilkinson, Hospitalist at
--- NOTE | 2022-10-15 10:38 | PC.NURSE ---
called for a bed update, [address] is being cleaned second floor will call with an update when room is ready
--- NOTE | 2022-10-15 11:36 | PC.NURSE ---
Oral fluids provided.
--- NOTE | 2022-10-15 11:41 | PC.NURSE ---
report given to Helen MCINTYRE
--- NOTE | 2022-10-15 11:41 | PC.NURSE ---
pt ambulatory to restroom with assistance. no complications. pt back in bed, hooked up to monitor with call light within reach
--- NOTE | 2022-10-15 11:42 | HMH.PHAINT1 ---
Pharmacy Intervention Comments: MEDICATION RECONCILIATION COMPLETED ON PATIENT USING EXTERNAL FILL HISTORY FROM PHARMACY AND DAMIR REPORT. -BRE NICOLAS, NIRAVD
[2022-10-15 12:15] LABS: Troponin I 0.02 ng/ml (0.00-0.034)
--- NOTE | 2022-10-15 12:19 | PC.NURSE ---
came to floor by w/c from ED
--- NOTE | 2022-10-15 12:26 | PC.NURSE ---
courtesy tech note; transported pt to floor by wheelchair. minimum assistance required from bed to chair. assisted pt to change into gown, pt denied the need to void, assisted pt to reposition in bed. call light within reach, no further requests at this time. Errol Colunga, ANITA
[2022-10-15 15:00] LABS: Troponin I 0.02 ng/ml (0.00-0.034)
--- NOTE | 2022-10-15 15:03 | EXP.HP ---
History of Present Illness *Admission Date: 10/15/22 *Reason for visit:: Shortness of breath *History of present illness: Patient is a 82-year-old female past medical history of stage IV CKD, hypertension, hyperlipidemia who presents emergency department for evaluation of cough, vomiting and diarrhea.? Onset was acute, over the last 6 hours.? Nonbloody, multiple episodes of vomiting and diarrhea.? Patient has associated epigastric discomfort with retching and additional productive cough.? Patient recently had a lesion removed from her left wrist yesterday under local anesthesia.? No other acute complaints at this time. [facility] Disclaimer: The information contained in this section may have been updated after the patient was seen, as this information can be updated by other users. Medical History (Updated 10/15/22 @ 15:11 by Pratima Wilkinson MD) Acute UTI (urinary tract infection) Asthma Breast cancer Chronic renal insufficiency, stage IV (severe) Gastroenteritis Gout History of gastroesophageal reflux (GERD) Hyperlipidemia Hypertension Hypothyroid Sinus headache Skin cancer Surgical History H/O lumpectomy History of back surgery History of tonsillectomy Hx of cholecystectomy Family History Other Epilepsy Social History (Updated 10/15/22 @ 12:43 by Lissette Moon RN) Smoking Status: Former smoker years smoked: 20 alcohol intake: never substance use type: denies use current occupational status: retired Travel in the last 8 weeks: None caffeine: No Review of Systems Review of Systems Review of systems:: pertinent systems reviewed and negative unless documented below Meds Home Medications and Allergies Home Medications Medication Instructions Recorded Confirmed Type levothyroxine 50 mcg tablet 50 mcg PO DAILY THYROID 11/28/17 10/15/22 History lovastatin 40 mg tablet 40 mg PO DAILY Cholesterol 11/28/17 10/15/22 History allopurinol 100 mg tablet 400 mg PO DAILY GOUT 04/24/19 10/15/22 History gabapentin 100 mg capsule 200 mg PO HS Pain 04/24/19 10/15/22 History trazodone 50 mg tablet 50 mg PO HSP PRN Sleep 04/24/19 10/15/22 History amlodipine 2.5 mg tablet 2.5 mg PO DAILY Hypertension 04/22/21 10/15/22 History calcitriol 0.25 mcg capsule 0.25 mcg PO Q48H Supplement 04/22/21 10/15/22 History pantoprazole 40 mg tablet,delayed 40 mg PO DAILY Reflux/Acid reflux 04/22/21 10/15/22 History release ondansetron 4 mg disintegrating 4 mg PO TIDP PRN Nausea #12 tabs 09/21/21 10/15/22 Rx tablet fluticasone propionate 115 2 puff inhalation BID Asthma 10/14/22 10/15/22 History mcg-salmeterol 21 mcg/actuation HFA inhaler (Advair HFA) albuterol sulfate 90 mcg/actuation 1 inh inhalation QIDP PRN 10/15/22 10/15/22 History aerosol inhaler shortness of breath or wheezing bisoprolol fumarate 5 mg tablet 5 mg PO DAILY Hypertension 10/15/22 10/15/22 History cetirizine 10 mg capsule (Zyrtec) 10 mg PO DAILY Allergy symptoms 10/15/22 10/15/22 History tramadol 50 mg tablet 50 mg PO HSP PRN Sleep 10/15/22 10/15/22 History New Prescriptions to Start Prescriptions: Allergies Allergy/AdvReac Type Severity Reaction Status Date / Time acetaminophen [From TYLENOL] Allergy Unknown Verified 10/14/22 10:20 aspirin [ASPIRIN] Allergy Unknown Verified 10/14/22 10:20 codeine [CODEINE] Allergy Unknown Verified 10/14/22 10:20 hydrocodone [HYDROCODONE] Allergy Unknown SWELLING Verified 10/14/22 10:20 levofloxacin [LEVOFLOXACIN] Allergy Unknown Verified 10/14/22 10:20 morphine [MORPHINE] Allergy Unknown SWELLING Verified 10/14/22 10:20 oxytetracycline Allergy Unknown Verified 10/14/22 10:20 [OXYTETRACYCLINE] Penicillins [PENICILLINS] Allergy Unknown Verified 10/14/22 10:20 polymyxin B [POLYMYXIN B] Allergy Unknown Verified 10/14/22 10:20 streptomycin [STREPTOMYCIN] Allergy Unknown Verified 10/14/22 10:20
--- NOTE | 2022-10-15 15:39 | PC.NURSE ---
courtesy tech note; 0300 rounded on pt, pt denied need for drink and need to void, assisted primary tech to pull pt up in bed. call light within reach, no further requests at this time. Errol Colunga, SRNA
--- NOTE | 2022-10-15 18:14 | PC.NURSE ---
pt has done well since arriving to floor. lungs cta, alert X4.vss. pt had skin CA removed from lt hand 10/14, tegaderm cdi. no other skin issues noted. pt sba when ambulating. no meds ordered on pt, notified md. no c/o n/v/d/p this shift. cb within reach. no concerns at this time.
[2022-10-16] VITALS: BP 133/58; PULSE 72; RESP 18; TEMP 36.8; O2SAT 97
--- NOTE | 2022-10-16 03:51 | PC.NURSE ---
PATIENT HAS RESTED WELL TONIGHT. OCCASSIONAL DRY COUGH NOTED. NO COMPLAINTS VOICED. 02 SAT 97% ON ROOM AIR. VSS/AFEBRILE.
[2022-10-16 04:00] VITALS: BP 148/61; PULSE 67; RESP 18; TEMP 36.8; O2SAT 97; BMI 27.6
[2022-10-16 06:53] LABS: Basophils # 0.1 K/mm3 (0-0.2); Basophils % 0.5 % (0.1-2.0); Eosinophils # 0.4 K/mm3 (0.0-0.4); Eosinophils % 2.7 % (0.1-12.0); Hematocrit 35.7 % (37.0-47.0); Hemoglobin 11.4 g/dL (12.2-16.2); Lymphocytes # 2.6 K/mm3 (0.7-4.5); Mean Corpuscular Hemoglobin 29.4 pg (27.0-31.2); Mean Corpuscular Volume 91.7 fl (81-99); Mean Platelet Volume 8.3 fl (7.4-10.4); Monocytes # 0.8 K/mm3 (0.1-1.0); Monocytes % 5.9 % (1.7-9.3); Neutrophils # 9.2 K/mm3 (1.8-7.8); Neutrophils % 70.8 % (37.0-80.0); Platelet Count 340 K/mm3 (142-424); Red Blood Count 3.89 M/mm3 (4.20-5.40); Red Cell Distribution Width 16.5 % (11.5-17.5)
[2022-10-16 07:08] LABS: Chloride 96 mmol/L (98-107); Sodium 135 mmol/L (136-145)
[2022-10-16 07:09] LABS: Potassium 4.3 mmoL/L (3.5-5.1)
[2022-10-16 07:11] LABS: Alanine Aminotransferase 17 U/L (12-78); Albumin Level 3.6 g/dl (3.5-5.0); Albumin/Globulin Ratio 1.2 (1.1-1.8); Alkaline Phosphatase 136 U/L (38-126); Anion Gap 17.3 mEq/L (5-15); Aspartate Amino Transferase 34 U/L (14-36); Bilirubin,Total 0.6 mg/dl (0.2-1.3); Blood Urea Nitrogen 33 mg/dl (7-17); Carbon Dioxide 26 mmol/L (22.0-30.0); Creatinine Clearance Estimated 25 mL/min (50-200); Estimated Glomerular Filt Rate 25 ml/min (>60); GFR (African American) 31 ML/MIN (>60); Globulin 2.9 g/dL (1.3-3.2); Phosphorous 3.5 mg/dl (2.5-4.5); Total Protein,Serum 6.5 g/dl (6.3-8.2)
[2022-10-16 07:12] LABS: Calcium 9.1 mg/dl (8.4-10.2); Glucose 97 mg/dl (74-100); Magnesium 1.4 mg/dl (1.6-2.3)
--- NOTE | 2022-10-16 07:33 | EXP.DC.SUM ---
General Admission date:: 10/15/22 Discharge date: 10/16/22 HPI HPI HPI: Patient is a 82-year-old female past medical history of stage IV CKD, hypertension, hyperlipidemia who presents emergency department for evaluation of cough, vomiting and diarrhea.? Onset was acute, over the last 6 hours.? Nonbloody, multiple episodes of vomiting and diarrhea.? Patient has associated epigastric discomfort with retching and additional productive cough.? Patient recently had a lesion removed from her left wrist yesterday under local anesthesia.? No other acute complaints at this time. Hospital Course Hospital Course Hospital Course: Patient was admitted for pneumonia. She was started on antibiotics and Lasix and had symptomatic improvement. This morning she is ambulating, eating, urinating, having bowel movements, and subjectively feels better without any difficulty breathing anymore. Did not require oxygen. Discussed discharged with oral antibiotics for pneumonia. Patient was agreeable. Patient was discharged home. Exam Data for Last 24 hours Vital signs and Labs for Last 24 Hours: Temp Pulse Resp BP Pulse Ox 98.2 F 67 18 148/61 H 97 10/16/22 04:00 10/16/22 04:00 10/16/22 04:00 10/16/22 04:00 10/16/22 04:00 Laboratory Results - last 24 hr 10/15/22 08:23: WBC 17.7 H, RBC 3.82 L, Hgb 11.1 L, Hct 35.5 L, MCV 92.7, MCH 29.1, MCHC 31.4 L, RDW 16.7, Plt Count 356, MPV 8.2, Neut % (Auto) 80.0, Lymph % (Auto) 12.4, Beaver % (Auto) 5.8, Eos % (Auto) 1.4, Baso % (Auto) 0.4, Neut # (Auto) 14.1 H, Lymph # (Auto) 2.2, Beaver # (Auto) 1.0, Eos # (Auto) 0.3, Baso # (Auto) 0.1, Total Counted 100, Neutrophils % (Manual) 82 H, Lymphocytes % (Manual) 10, Monocytes % (Manual) 7, Eosinophils % (Manual) 1, Platelet Estimate Normal, RBC Morphology Normal 10/15/22 08:23: Sodium 130 L, Potassium 4.5, Chloride 95 L, Carbon Dioxide 24, Anion Gap 15.5 H, BUN 35 H, Creatinine 2.40 H, Estimated Creat Clear 20, Estimated GFR 19 L*, Est GFR ( Amer) 23 L, Glucose 112 H, Calcium 9.1, Total Bilirubin 0.8, AST 34, ALT 18, Alkaline Phosphatase 125, Troponin I 0.02, Total Protein 7.5, Albumin 4.1, Globulin 3.4 H, Albumin/Globulin Ratio 1.2, Lipase 28 10/15/22 08:23: SARS-CoV-2 (PCR) Not detected, Influenza A Untype (PCR) Not detected, Influenza Type B (PCR) Not detected 10/15/22 09:20: Lactate 1.2 10/15/22 09:20: Urine Color Yellow, Urine Appearance Slightly cloudy, Urine pH 6.0, Ur Specific [place] 1.010, Urine Protein Trace, Urine Glucose (UA) Negative, Urine Ketones Negative, Urine Blood Trace, Urine Nitrate Negative, Urine Bilirubin Negative, Urine Urobilinogen 0.2, Ur Leukocyte Esterase 2+ A, Urine RBC 3-5, Urine WBC 10-20, Ur Squamous Epith Cells 3-5, Urine Bacteria Trace, Hyaline Casts Occasional 10/15/22 11:22: Troponin I 0.02 10/15/22 14:33: Troponin I 0.02 10/16/22 06:28: WBC 13.0 H D, RBC 3.89 L, Hgb 11.4 L, Hct 35.7 L, MCV 91.7, MCH 29.4, MCHC 32.0, RDW 16.5, Plt Count 340, MPV 8.3, Neut % (Auto) 70.8, Lymph % (Auto) 20.0, Beaver % (Auto) 5.9, Eos % (Auto) 2.7, Baso % (Auto) 0.5, Neut # (Auto) 9.2 H, Lymph # (Auto) 2.6, Beaver # (Auto) 0.8, Eos # (Auto) 0.4, Baso # (Auto) 0.1 10/16/22 06:28: Sodium 135 L, Potassium 4.3, Chloride 96 L, Carbon Dioxide 26, Anion Gap 17.3 H, BUN 33 H, Creatinine 1.90 H D, Estimated Creat Clear 25, Estimated GFR 25 L, Est GFR ( Amer) 31 L D, Glucose 97, Calcium 9.1, Phosphorus 3.5, Magnesium 1.4 L, Total Bilirubin 0.6, AST 34, ALT 17, Alkaline Phosphatase 136 H, Total Protein 6.5, Albumin 3.6 D, Globulin 2.9, Albumin/Globulin Ratio 1.2 I & O for Last 24 hours: Intake & Output 10/13/22 10/14/22 10/15/22 10/16/22 23:59 23:59 23:59 23:59 Intake Total 480 / 720 240 / 240 Output Total 0 / 0 Balance 480 / 720 239 / 239 Weight 68.549 kg 68.175 kg Constitutional Constitutional: no acute distress *Routine HEENT Exam Head: Present normocephalic Eye: Present EOMI and PERRL ENT: Present mucous membranes moist *Routine
[2022-10-16 07:49] VITALS: BP 141/59; PULSE 82; RESP 18; TEMP 36.3; O2SAT 97
--- NOTE | 2022-10-16 10:28 | HMH.PHAINT1 ---
Pharmacy Intervention Comments: DISCHARGE MEDICATION COUNSELING PROVIDED. ORIGINALLY COUNSELED FOR LEVAQUIN, BUT ON CLOSER EXAMINATION PATIENT WAS ALLERGIC. SPOKE WITH DR CORIE SÁNCHEZ AND HE CHANGED TO AZITHROMYCIN. PATIENT WAS CONSELED TO START TOMORROW, WATCH FOR UPSET STOMACH/DIARRHEA, MAY CONSIDER TAKING WITH FOOD. PATIENT VERBALIZED NO QUESTIONS AT THIS TIME.
--- NOTE | 2022-10-18 15:39 | CARE MANAGER ---
Attempted post-discharge phone interview, no answer.
--- NOTE | 2022-10-19 12:58 | CARE MANAGER ---
Attempted to contact patient x2 related to hospital discharge. No VM option. FRANCISCO JAVIER Rush
== END 2022-10-16 11:20 | disposition home or self-care (01) | DRG 194 ==
LOC: ER 09:26 → 2ND 09:40
PROVIDERS: Admitting Provider Student in an Organized Health Care Education/Training Program; Emergency Provider Emergency Medicine; PCP Internal Medicine; Visit Provider Student in an Organized Health Care Education/Training Program
DX: J18.9 Pneumonia, unspecified organism (principal); N18.4 Chronic kidney disease, stage 4 (severe); I12.9 Hypertensive chronic kidney disease with stage 1 through stage 4 chronic kidney disease, or unspecified chronic kidney disease; Z85.3 Personal history of malignant neoplasm of breast; Z87.891 Personal history of nicotine dependence; E78.5 Hyperlipidemia, unspecified; E03.9 Hypothyroidism, unspecified; C44.629 Squamous cell carcinoma of skin of left upper limb, including shoulder
CPT/HCPCS: 11620; 36415; 71045; 80053; 81001; 83605; 83690; 83735; 84100; 84484; 85007; 85025; 87086; 87088; 87186; 88305; 93005; 99285; C9803; J0456; J0696; J2405; U0003; U0005

== ENCOUNTER → 2022-11-19 14:49 | Outpatient (CLI) | payer MEDICARE, MEDICAID, SELFPAY | PROVIDERS: PCP Internal Medicine; Visit Provider Internal Medicine | DX: R07.9 Chest pain, unspecified (principal) | CPT/HCPCS: 93225; 93226 ==

== ENCOUNTER → 2022-11-30 14:35 | Outpatient (CLI) | payer MEDICARE, MEDICAID, SELFPAY ==
--- NOTE | 2022-11-30 | CA_ITS ---
FINAL REPORT TECHNIQUE: Color Doppler, duplex Doppler and santana scale sonography of the bilateral neck arterial vasculature was performed. Velocities were measured in the carotid arteries. Stenosis evaluation based on the validated velocity criteria. CLINICAL HISTORY: DIZZINESS,HTN,HLD FINDINGS: The peak systolic velocity of the right common carotid artery is 83 cm/s. The peak systolic velocity of the right internal carotid artery is 97 cm/s and end diastolic velocity 20 cm/s. The ICA/CCA ratio is 1.2. A moderate amount of plaque is present. The right external carotid artery is patent. The right vertebral artery is patent with antegrade flow. The peak systolic velocity of the left common carotid artery is 85 cm/s. The peak systolic velocity of the left internal carotid artery is 129 cm/s and end diastolic velocity 25 cm/s. The ICA/CCA ratio is 1.5. A moderate amount of plaque is present. The left external carotid artery is patent. The left vertebral artery is patent with antegrade flow. IMPRESSION: Less than 50% bilateral carotid stenoses. Bilateral patent vertebral arteries with antegrade flow. If indicated, CTA or MRA could further evaluate. Reviewed, Interpreted and Dictated by Osiel Smith MD Transcribed by Kailee Stuart Authenticated and [facility]
== END ==
PROVIDERS: PCP Internal Medicine; Visit Provider Internal Medicine
DX: R42 Dizziness and giddiness (principal)
CPT/HCPCS: 93880

== ENCOUNTER → 2022-12-15 18:33 | Outpatient (CLI) | payer MEDICARE, MEDICAID, SELFPAY ==
[2022-12-15 19:19] LABS: Basophils # 0.1 K/mm3 (0-0.2); Basophils % 0.6 % (0.1-2.0); Eosinophils # 0.3 K/mm3 (0.0-0.4); Eosinophils % 2.7 % (0.1-12.0); Hematocrit 38.8 % (37.0-47.0); Hemoglobin 11.8 g/dL (12.2-16.2); Lymphocytes # 3.1 K/mm3 (0.7-4.5); Lymphocytes % 31.2 % (10-50); Mean Corpuscular HGB Conc 30.4 g/dL (31.8-35.4); Mean Corpuscular Hemoglobin 28.4 pg (27.0-31.2); Mean Corpuscular Volume 93.3 fl (81-99); Mean Platelet Volume 8.4 fl (7.4-10.4); Monocytes # 0.5 K/mm3 (0.1-1.0); Monocytes % 4.6 % (1.7-9.3); Neutrophils # 6.1 K/mm3 (1.8-7.8); Neutrophils % 60.9 % (37.0-80.0); Platelet Count 367 K/mm3 (142-424); Red Blood Count 4.16 M/mm3 (4.20-5.40); Red Cell Distribution Width 16.8 % (11.5-17.5)
[2022-12-15 20:21] LABS: Alanine Aminotransferase 27 U/L (12-78); Albumin Level 3.5 g/dl (3.5-5.0); Albumin/Globulin Ratio 1.3 (1.1-1.8); Alkaline Phosphatase 164 U/L (38-126); Anion Gap 16.6 mEq/L (5-15); Aspartate Amino Transferase 41 U/L (14-36); Bilirubin,Total 1.2 mg/dl (0.2-1.3); Blood Urea Nitrogen 40 mg/dl (7-17); Calcium 8.8 mg/dl (8.4-10.2); Carbon Dioxide 24 mmol/L (22.0-30.0); Chloride 98 mmol/L (98-107); Chol/HDL Ratio 1.4 (1-3.5); Cholesterol 123 mg/dl (140-200); Estimated Glomerular Filt Rate 20 ml/min (>60); GFR (African American) 25 ML/MIN (>60); Globulin 2.7 g/dL (1.3-3.2); Glucose 92 mg/dl (74-100); HDL Cholesterol 86 mg/dl (40-60); Potassium 4.6 mmoL/L (3.5-5.1); Sodium 134 mmol/L (136-145); Total Protein,Serum 6.2 g/dl (6.3-8.2); Triglycerides 134 mg/dl (30-150); VLDL Cholesterol 27 mg/dL (0-40)
[2022-12-15 20:34] LABS: Direct LDL Cholesterol 38.32 mg/dL (100-129)
[2022-12-15 20:54] LABS: Thyroid Stimulating Hormone 0.89 uIU/mL (0.465-4.68)
== END ==
PROVIDERS: PCP Internal Medicine; Visit Provider Internal Medicine
DX: I95.1 Orthostatic hypotension (principal); E03.9 Hypothyroidism, unspecified; E78.5 Hyperlipidemia, unspecified
CPT/HCPCS: 80053; 80061; 84443; 85025

== ENCOUNTER 2022-12-18 10:52 | Emergency (ER) | payer MEDICARE, MEDICAID, SELFPAY ==
[2022-12-18] VITALS (7 sets, daily range): BP systolic 109–158; BP diastolic 30–68; PULSE 68–76; RESP 16–20; TEMP 36.7–37.1; O2SAT 95–100; BMI 28.9
--- NOTE | 2022-12-18 11:02 | CT_ITS ---
PROCEDURE INFORMATION: Exam: CT Cervical Spine Without Contrast Exam date and time: 12/18/2022 11:18 AM Age: 82 years old Clinical indication: Injury or trauma; Fall; Additional info: Fall- large laceration to right forehead TECHNIQUE: Imaging protocol: Computed tomography of the cervical spine without contrast. Radiation optimization: All CT scans at this facility use at least one of these dose optimization techniques: automated exposure control; mA and/or kV adjustment per patient size (includes targeted exams where dose is matched to clinical indication); or iterative reconstruction. REPORTING DATA: Count of CT and Cardiac NM exams in prior 12 months: This patient has received [address] and 0 known cardiac nuclear medicine studies in the 12 months prior to the current study. COMPARISON: CR [id number] XR cervical spine 5V 08/01/2017 10:02 AM FINDINGS: Bones/joints: alignment is normal. posterior vertebral line and the spinal laminar line normal. odontoid process normal. no fracture. Straightening of the normal cervical lordosis. degenerative disc disease most pronounced C3-C4, C4-C5, C5-C6 and C6-C7 reflected as disk space narrowing and anterior osteophyte formation. Ankylosis of the C2 and C3 facets on the right and left. Mild anterior degenerative listhesis of C3 with respect to C4 of 3 mm Lungs: The lung apices are normal. Vasculature: Dense carotid calcifications. Tortuous carotids extending within the retropharyngeal region. Soft tissues: Unremarkable. IMPRESSION: 1. Degenerative disc disease most pronounced C3-C4, C4-C5, C5-C6 and C6-C7 reflected as disk space narrowing and anterior osteophyte formation. 2. No fracture.
--- NOTE | 2022-12-18 11:02 | CT_ITS ---
PROCEDURE INFORMATION: Exam: CT Head Without Contrast Exam date and time: 12/18/2022 11:16 AM Age: 82 years old Clinical indication: Injury or trauma; Fall; Additional info: Fall, head injury- large laceration to right forehead TECHNIQUE: Imaging protocol: Computed tomography of the head without contrast. Radiation optimization: All CT scans at this facility use at least one of these dose optimization techniques: automated exposure control; mA and/or kV adjustment per patient size (includes targeted exams where dose is matched to clinical indication); or iterative reconstruction. REPORTING DATA: Count of CT and Cardiac NM exams in prior 12 months: This patient has received [address] and 0 known cardiac nuclear medicine studies in the 12 months prior to the current study. COMPARISON: CT HEAD/BRAIN WO CON 02/27/2022 1:41 PM FINDINGS: Brain: Extensive hypodensity is seen in the periventricular cerebral white matter. This change is nonspecific but is most likely secondary to chronic ischemia within microvascular distributions. No other intra or extra-axial masses, lesions or collections. Quinonez white matter distinction is maintained throughout the brain. No radiographic evidence of intracranial hemorrhage. No radiographic evidence of acute intracranial pathology. Cerebral ventricles: Ventricles are enlarged on the basis of mild diffuse cerebral volume loss. Paranasal sinuses: Visualized sinuses are unremarkable. No fluid levels. Mastoid air cells: Visualized mastoid air cells are well aerated. Bones/joints: Unremarkable. No acute fracture. Soft tissues: Unremarkable. IMPRESSION: No radiographic evidence of acute intracranial pathology. Extensive small vessel ischemic changes.
--- NOTE | 2022-12-18 11:27 | HMH.EDGENADL ---
Discharge Plan Disposition Patient Disposition: Home, Self-Care Condition: Fair Prescriptions Prescriptions: New cephalexin 500 mg capsule 500 mg PO Q6H 7 Days Qty: 28 0RF No Action gabapentin 100 mg capsule 200 mg PO HS trazodone 50 mg tablet 50 mg PO HSP PRN (Reason: Sleep) allopurinol 100 mg tablet 400 mg PO DAILY amlodipine 2.5 mg tablet 2.5 mg PO DAILY calcitriol 0.25 mcg capsule 0.25 mcg PO Q48H pantoprazole 40 mg tablet,delayed release (DR/EC) 40 mg PO DAILY lovastatin 40 MG tablet 40 mg PO DAILY levothyroxine 50 MCG tablet 50 mcg PO DAILY fluticasone propion-salmeterol [Advair HFA] 115-21 mcg/actuation HFA aerosol inhaler 2 puff INHALATION BID bisoprolol fumarate 5 mg tablet 5 mg PO DAILY Label Comments: TAKE 1 TABLET BY MOUTH ONCE DAILY tramadol 50 MG tablet 50 mg PO HSP PRN (Reason: Sleep) albuterol sulfate 90 mcg/actuation HFA aerosol inhaler 1 inh INHALATION QIDP PRN (Reason: shortness of breath or wheezing) Zyrtec 10 mg capsule 10 mg PO DAILY azithromycin [Zithromax Z-Pete] 250 mg tablet See Rx Instructions .ROUTE .COMPLEX Qty: 6 0RF Rx Instructions: For 250 mg dose pack: take 500 mg today (day 1), then 250 mg for 4 days (days 2-5). START 10/17/22. ondansetron 4 MG tablet,disintegrating 4 mg PO TIDP PRN (Reason: Nausea) Qty: 12 0RF Referrals Follow up/Referrals: Tayo Ramirez MD [Primary Care Provider] - See instructions Activity Restrictions/Add. Instructions Additional Instructions/Restrictions: You have been evaluated for a laceration, head injury. Wound has been repaired with sutures. This wound has high risk of poor healing, given that it was open for greater than 12 hours without sutures. Also high risk for infection. Please take antibiotics as prescribed. Follow-up with your primary care doctor within 1 to 2 days for symptom recheck. Return to the emergency department for any new or worsening symptoms, drainage, redness, fever, headache, other concerns. Clinical Impressions Clinical Impression: Laceration, Closed head injury, Wound healing, delayed Instructions Patient Instructions: DI for Laceration Repair -- Complex Suture, DI for Closed Head Injury Discharge ED Provider: Vanessa Gonzalez General Adult HPI General Chief complaint: Head Injury Stated complaint: [id number] fall, injury to forehead Time Seen by Provider: 12/18/22 10:56 Mode of Arrival: Ambulatory Limitations: No Limitations Description of Symptoms (Recalled from ER Triage Doc. by RN): pt to the ED with a large laceration to the right forehead. pt reports she tripped and fell down her stairs last night around 8pm. pt denies any LOC, blood thinners or other injuries at this time. pt wound is large, jagged and gaping open with bleeding under control. pt reports she didnt have anyone to take her to the hospital last night. History of Present Illness HPI narrative: 82-year-old female presenting to the emergency department with head injury. She fell yesterday evening, around 8 PM. Says she fell down 3 steps and struck the right side of her head on the corner of a handrail. She had bleeding from her forehead. Bleeding stopped with pressure. She continues to have a headache that is described as constant, throbbing, located in the front. She denies neck pain. Did not lose consciousness in the fall. Did not seek medical attention until today. No other injuries in the fall unsure of her most recent tetanus immunization Related Data Home Medications Medication Instructions Recorded Confirmed levothyroxine 50 mcg tablet 50 mcg PO DAILY THYROID 11/28/17 10/27/22 lovastatin 40 mg tablet 40 mg PO DAILY Cholesterol 11/28/17 10/27/22 allopurinol 100 mg tablet 400 mg PO DAILY GOUT 04/24/19 10/27/22 gabapentin 100 mg capsule 200 mg PO HS Pain 04/24/19 10/27/22 trazodone 50 mg tablet 50 mg PO HSP PRN Sleep 04/24/19
== END 2022-12-18 13:13 | disposition home or self-care (01) ==
PROVIDERS: Emergency Provider Emergency Medicine; PCP Internal Medicine
DX: S01.81XA Laceration without foreign body of other part of head, initial encounter (principal); W10.8XXA Fall (on) (from) other stairs and steps, initial encounter; R51.9 Headache, unspecified; I12.9 Hypertensive chronic kidney disease with stage 1 through stage 4 chronic kidney disease, or unspecified chronic kidney disease; E03.9 Hypothyroidism, unspecified; N18.4 Chronic kidney disease, stage 4 (severe); E78.5 Hyperlipidemia, unspecified; J45.909 Unspecified asthma, uncomplicated; Z23 Encounter for immunization
CPT/HCPCS: 12052; 70450; 72125; 90715; 96372; 96374; 99284; 99285; J0690

== ENCOUNTER 2023-03-03 16:44 | Emergency (ER) | payer MEDICARE, MEDICAID, SELFPAY ==
[2023-03-03 16:47] VITALS: BP 133/56; PULSE 77; RESP 19; TEMP 36.8; O2SAT 99; BMI 19.6
--- NOTE | 2023-03-03 17:26 | PC.NURSE ---
Dr Cooper at [facility] for patient eval
--- NOTE | 2023-03-03 17:32 | CT_ITS ---
PROCEDURE INFORMATION: Exam: CT Head Without Contrast Exam date and time: 03/03/2023 5:50 PM Age: 83 years old Clinical indication: Injury or trauma; Fall; Bleeding/hemorrhage and blunt trauma (contusions or hematomas) and laceration; Consciousness not specified; Without residual foreign body; Scalp; Additional info: Fall head injury TECHNIQUE: Imaging protocol: Computed tomography of the head without contrast. Radiation optimization: All CT scans at this facility use at least one of these dose optimization techniques: automated exposure control; mA and/or kV adjustment per patient size (includes targeted exams where dose is matched to clinical indication); or iterative reconstruction. REPORTING DATA: Count of CT and Cardiac NM exams in prior 12 months: This patient has received 2 known CTs and 0 known cardiac nuclear medicine studies in the 12 months prior to the current study. COMPARISON: CT HEAD/BRAIN WO CON 12/18/2022 11:16 AM FINDINGS: Brain: Chronic lacunar infarct noted in the left cerebellum. There is no evidence of acute intracranial hemorrhage, extra-axial collection or locoregional mass effect. There are scattered hypodensities in the periventricular and subcortical white matter. The appearance is nonspecific, but most likely represents chronic small vessel disease in a person of this age Cerebral ventricles: The ventricles, sulci and cisterns are normal in size and configuration for patient's age. No hydrocephalus or midline structure shift Pituitary gland and sella: Sellar/parasellar structures, craniocervical junction and orbits are unremarkable Paranasal sinuses: Visualized sinuses are unremarkable. No fluid levels. Mastoid air cells: Visualized mastoid air cells are well aerated. Bones/joints: No calvarial fracture Soft tissues: Posterior scalp laceration noted. IMPRESSION: 1. No acute intracranial abnormality. No calvarial fracture. 2. Posterior scalp laceration noted.
--- NOTE | 2023-03-03 17:32 | CT_ITS ---
PROCEDURE INFORMATION: Exam: CT Cervical Spine Without Contrast Exam date and time: 03/03/2023 5:52 PM Age: 83 years old Clinical indication: Injury or trauma; Fall; Bleeding/hemorrhage and blunt trauma and laceration; Not specified; Additional info: Fall, injury TECHNIQUE: Imaging protocol: Computed tomography of the cervical spine without contrast. Radiation optimization: All CT scans at this facility use at least one of these dose optimization techniques: automated exposure control; mA and/or kV adjustment per patient size (includes targeted exams where dose is matched to clinical indication); or iterative reconstruction. REPORTING DATA: Count of CT and Cardiac NM exams in prior 12 months: This patient has received 2 known CTs and 0 known cardiac nuclear medicine studies in the 12 months prior to the current study. COMPARISON: CT CERVICAL SPINE WO CON 12/18/2022 11:18 AM FINDINGS: Bones/joints: Vertebral alignment is maintained. There is preservation of vertebral body heights. Facet joints are aligned. Odontoid process is intact. Atlantoaxial interval maintained. No acute fracture. Uncovertebral and facet arthropathy result in varying degrees of neural foraminal narrowing at multiple levels. Lungs: Lung apices are normal. Soft tissues: Prevertebral and paravertebral soft tissues are maintained IMPRESSION: No acute fracture. No traumatic subluxation.
--- NOTE | 2023-03-03 17:46 | [facility].EDGENADL ---
Discharge Plan Disposition Patient Disposition: Home, Self-Care Prescriptions Prescriptions: No Action gabapentin 100 mg capsule 200 mg PO HS trazodone 50 mg tablet 50 mg PO HSP PRN (Reason: Sleep) allopurinol 100 mg tablet 400 mg PO DAILY amlodipine 2.5 mg tablet 2.5 mg PO DAILY calcitriol 0.25 mcg capsule 0.25 mcg PO Q48H pantoprazole 40 mg tablet,delayed release (DR/EC) 40 mg PO DAILY lovastatin 40 MG tablet 40 mg PO DAILY levothyroxine 50 MCG tablet 50 mcg PO DAILY fluticasone propion-salmeterol [Advair HFA] 115-21 mcg/actuation HFA aerosol inhaler 2 puff INHALATION BID bisoprolol fumarate 5 mg tablet 5 mg PO DAILY Patient Comments: TAKE 1 TABLET BY MOUTH ONCE DAILY tramadol 50 MG tablet 50 mg PO HSP PRN (Reason: Sleep) albuterol sulfate 90 mcg/actuation HFA aerosol inhaler 1 inh INHALATION QIDP PRN (Reason: shortness of breath or wheezing) Zyrtec 10 mg capsule 10 mg PO DAILY azithromycin [Zithromax Z-Pete] 250 mg tablet See Rx Instructions .ROUTE .COMPLEX Qty: 6 0RF Rx Instructions: For 250 mg dose pack: take 500 mg today (day 1), then 250 mg for 4 days (days 2-5). START 10/17/22. cephalexin 500 mg capsule 500 mg PO Q6H 7 Days Qty: 28 0RF ondansetron 4 MG tablet,disintegrating 4 mg PO TIDP PRN (Reason: Nausea) Qty: 12 0RF Referrals Follow up/Referrals: Tayo Ramirez MD [Primary Care Provider] - See instructions Activity Restrictions/Add. Instructions Additional Instructions/Restrictions: Please return to have your cata removed in 10 days Clinical Impressions Clinical Impression: Fall, Minor head injury, Laceration of scalp Instructions Patient Instructions: DI for Laceration Repair Discharge ED Provider: Flynn Cooper General Adult HPI General Chief complaint: Wound/Laceration Stated complaint: AO 03/03 Fell hit head lat Time Seen by Provider: 03/03/23 17:24 History of Present Illness HPI narrative: 83-year-old female here with mechanical fall and head injury with a laceration and scalp bleeding. Denies any loss of consciousness changes in mental status nausea and vomiting anticoagulant use or antiplatelet use. She is at her mental baseline she states she does not have any significant neck pain injuries to her chest abdomen pelvis or long bones. Related Data Home Medications Medication Instructions Recorded Confirmed levothyroxine 50 mcg tablet 50 mcg PO DAILY THYROID 11/28/17 10/27/22 lovastatin 40 mg tablet 40 mg PO DAILY Cholesterol 11/28/17 10/27/22 allopurinol 100 mg tablet 400 mg PO DAILY GOUT 04/24/19 10/27/22 gabapentin 100 mg capsule 200 mg PO HS Pain 04/24/19 10/27/22 trazodone 50 mg tablet 50 mg PO HSP PRN Sleep 04/24/19 10/27/22 amlodipine 2.5 mg tablet 2.5 mg PO DAILY Hypertension 04/22/21 10/27/22 calcitriol 0.25 mcg capsule 0.25 mcg PO Q48H Supplement 04/22/21 10/27/22 pantoprazole 40 mg tablet,delayed 40 mg PO DAILY Reflux/Acid reflux 04/22/21 10/27/22 release fluticasone propionate 115 2 puff inhalation BID Asthma 10/14/22 10/27/22 mcg-salmeterol 21 mcg/actuation HFA inhaler (Advair HFA) albuterol sulfate 90 mcg/actuation 1 inh inhalation QIDP PRN 10/15/22 10/27/22 aerosol inhaler shortness of breath or wheezing bisoprolol fumarate 5 mg tablet 5 mg PO DAILY Hypertension 10/15/22 10/27/22 cetirizine 10 mg capsule (Zyrtec) 10 mg PO DAILY Allergy symptoms 10/15/22 10/27/22 tramadol 50 mg tablet 50 mg PO HSP PRN Sleep 10/15/22 10/27/22 Previous Rx's Medication Instructions Recorded ondansetron 4 mg disintegrating 4 mg PO TIDP PRN Nausea #12 tabs 09/21/21 tablet azithromycin 250 mg tablet See Rx Instructions PO .COMPLEX #6 10/16/22 (Zithromax Z-Pete) tabs cephalexin 500 mg capsule 500 mg PO Q6H 7 days #28 caps 12/18/22 Allergies Allergy/AdvReac Type Severity Reaction Status Date / Time acetaminophen [From TYLENOL] Allergy Unknown Verified
[2023-03-03 18:39] VITALS: BP 148/74; PULSE 69; RESP 18; TEMP 36.7; O2SAT 98
== END 2023-03-03 18:54 | disposition home or self-care (01) ==
PROVIDERS: Emergency Provider Student in an Organized Health Care Education/Training Program; PCP Internal Medicine
DX: S01.01XA Laceration without foreign body of scalp, initial encounter (principal); I12.9 Hypertensive chronic kidney disease with stage 1 through stage 4 chronic kidney disease, or unspecified chronic kidney disease; N18.4 Chronic kidney disease, stage 4 (severe); J45.909 Unspecified asthma, uncomplicated; M10.9 Gout, unspecified; E78.5 Hyperlipidemia, unspecified; E03.9 Hypothyroidism, unspecified; Z85.3 Personal history of malignant neoplasm of breast; Z87.891 Personal history of nicotine dependence
CPT/HCPCS: 12011; 70450; 72125; 99285

== ENCOUNTER 2023-03-13 10:47 | Emergency (ER) | payer MEDICARE, SELFPAY ==
[2023-03-13 10:48] VITALS: BP 150/75; PULSE 80; RESP 17; TEMP 36.8; O2SAT 96; BMI 27.4
--- NOTE | 2023-03-13 10:55 | PC.NURSE ---
Dr. Tracey at [facility] for pt eval
--- NOTE | 2023-03-13 10:57 | [facility].EDGENADL ---
Discharge Plan Disposition Patient Disposition: Home, Self-Care Prescriptions Prescriptions: No Action gabapentin 100 mg capsule 200 mg PO HS trazodone 50 mg tablet 50 mg PO HSP PRN (Reason: Sleep) allopurinol 100 mg tablet 400 mg PO DAILY amlodipine 2.5 mg tablet 2.5 mg PO DAILY calcitriol 0.25 mcg capsule 0.25 mcg PO Q48H pantoprazole 40 mg tablet,delayed release (DR/EC) 40 mg PO DAILY lovastatin 40 MG tablet 40 mg PO DAILY levothyroxine 50 MCG tablet 50 mcg PO DAILY fluticasone propion-salmeterol [Advair HFA] 115-21 mcg/actuation HFA aerosol inhaler 2 puff INHALATION BID bisoprolol fumarate 5 mg tablet 5 mg PO DAILY Patient Comments: TAKE 1 TABLET BY MOUTH ONCE DAILY tramadol 50 MG tablet 50 mg PO HSP PRN (Reason: Sleep) albuterol sulfate 90 mcg/actuation HFA aerosol inhaler 1 inh INHALATION QIDP PRN (Reason: shortness of breath or wheezing) Zyrtec 10 mg capsule 10 mg PO DAILY azithromycin [Zithromax Z-Pete] 250 mg tablet See Rx Instructions .ROUTE .COMPLEX Qty: 6 0RF Rx Instructions: For 250 mg dose pack: take 500 mg today (day 1), then 250 mg for 4 days (days 2-5). START 10/17/22. cephalexin 500 mg capsule 500 mg PO Q6H 7 Days Qty: 28 0RF ondansetron 4 MG tablet,disintegrating 4 mg PO TIDP PRN (Reason: Nausea) Qty: 12 0RF Referrals Follow up/Referrals: Tayo Ramirez MD [Primary Care Provider] - See instructions Clinical Impressions Clinical Impression: Encounter for removal of cata Instructions Patient Instructions: DI for Skin Abscess Discharge ED Provider: Shivam Tracey General Adult HPI General Chief complaint: Skin/Abscess/Foreign Body Stated complaint: wants cata out, accident [id number] Time Seen by Provider: 03/13/23 10:53 Mode of Arrival: Family Vehicle Source of Information: Patient and Medical Record Limitations: No Limitations Description of Symptoms (Recalled from ER Triage Doc. by RN): Pt presents for staple removal from a head laceration she sustained on 03/03 d/t fall. Pt denies any fever, chills, or signs of infection surrounding the laceration. No further falls. History of Present Illness HPI narrative: Patient is a 83-year-old female who presents emergency department for evaluation of staple removal. Patient suffered a fall resulting in 4 cata in her scalp over 1 week ago. Tdap up-to-date. No other acute complaints at this time. Related Data Home Medications Medication Instructions Recorded Confirmed levothyroxine 50 mcg tablet 50 mcg PO DAILY THYROID 11/28/17 10/27/22 lovastatin 40 mg tablet 40 mg PO DAILY Cholesterol 11/28/17 10/27/22 allopurinol 100 mg tablet 400 mg PO DAILY GOUT 04/24/19 10/27/22 gabapentin 100 mg capsule 200 mg PO HS Pain 04/24/19 10/27/22 trazodone 50 mg tablet 50 mg PO HSP PRN Sleep 04/24/19 10/27/22 amlodipine 2.5 mg tablet 2.5 mg PO DAILY Hypertension 04/22/21 10/27/22 calcitriol 0.25 mcg capsule 0.25 mcg PO Q48H Supplement 04/22/21 10/27/22 pantoprazole 40 mg tablet,delayed 40 mg PO DAILY Reflux/Acid reflux 04/22/21 10/27/22 release fluticasone propionate 115 2 puff inhalation BID Asthma 10/14/22 10/27/22 mcg-salmeterol 21 mcg/actuation HFA inhaler (Advair HFA) albuterol sulfate 90 mcg/actuation 1 inh inhalation QIDP PRN 10/15/22 10/27/22 aerosol inhaler shortness of breath or wheezing bisoprolol fumarate 5 mg tablet 5 mg PO DAILY Hypertension 10/15/22 10/27/22 cetirizine 10 mg capsule (Zyrtec) 10 mg PO DAILY Allergy symptoms 10/15/22 10/27/22 tramadol 50 mg tablet 50 mg PO HSP PRN Sleep 10/15/22 10/27/22 Previous Rx's Medication Instructions Recorded ondansetron 4 mg disintegrating 4 mg PO TIDP PRN Nausea #12 tabs 09/21/21 tablet azithromycin 250 mg tablet See Rx Instructions PO .COMPLEX #6 10/16/22 (Zithromax Z-Pete) tabs cephalexin 500 mg capsule 500 mg PO Q6H 7 days #28 caps 12/18/22 Allergies Allergy/A
[2023-03-13 11:00] VITALS: BP 148/75; PULSE 78; RESP 18; TEMP 36.8; O2SAT 95
== END 2023-03-13 11:36 | disposition home or self-care (01) ==
PROVIDERS: Emergency Provider Emergency Medicine; PCP Internal Medicine
DX: S01.01XD Laceration without foreign body of scalp, subsequent encounter (principal); W19.XXXD Unspecified fall, subsequent encounter; J45.909 Unspecified asthma, uncomplicated; I12.9 Hypertensive chronic kidney disease with stage 1 through stage 4 chronic kidney disease, or unspecified chronic kidney disease; N18.4 Chronic kidney disease, stage 4 (severe); E78.5 Hyperlipidemia, unspecified; E03.9 Hypothyroidism, unspecified; M10.9 Gout, unspecified; Z85.3 Personal history of malignant neoplasm of breast; Z87.891 Personal history of nicotine dependence
CPT/HCPCS: 99282

== ENCOUNTER → 2023-03-31 10:39 | Outpatient (CLI) | payer MEDICARE, SELFPAY ==
--- NOTE | 2023-03-31 10:46 | MM_ITS ---
PROCEDURE INFORMATION: Exam: MG Bilateral Screening 3D Mammography Exam date and time: 03/31/2023 10:37 AM Age: 83 years old Clinical indication: Screening examination TECHNIQUE: Imaging protocol: Bilateral Screening tomosynthesis and 2D mammography including computer-aided detection (CAD) when performed. COMPARISON: 1. MG MM DIG SCREENING MAMM BI W/CAD 03/29/2022 10:04 AM 2. MG MM DIG SCREENING MAMM BI W/CAD 03/23/2021 10:21 AM FINDINGS: MAMMOGRAPHY: Breast composition: There are scattered areas of fibroglandular density. Mass: Questionable 0.8 cm mass in the middle third of the left upper outer quadrant Architectural distortion: None. Calcifications: No suspicious calcifications. Asymmetric density: None. Skin thickening: None. Axillary adenopathy: None. IMPRESSION: Patient to be recalled for spot compression views of the left breast in the CC and MLO projections, a full 90 degree lateral view, and left breast ultrasound for further evaluation of a left breast mass. ASSESSMENT: BI-RADS Category 0: Incomplete- Need Additional Imaging Evaluation and/or Prior Mammograms for Comparison
== END ==
PROVIDERS: PCP Internal Medicine; Visit Provider Surgery
DX: Z12.31 Encounter for screening mammogram for malignant neoplasm of breast (principal)
CPT/HCPCS: 77063; 77067

== ENCOUNTER → 2023-04-20 13:18 | Outpatient (CLI) | payer MEDICARE, SELFPAY ==
--- NOTE | 2023-04-20 14:16 | US_ITS ---
PROCEDURE INFORMATION: Exam: US Left Breast, Complete MG Left Diagnostic Breast Tomosynthesis Exam date and time: 04/20/2023 2:04 PM Age: 83 years old Clinical indication: Patient recalled for further evaluation of a questionable left breast TECHNIQUE: Imaging protocol: Complete ultrasound of all four quadrants of the left breast and the retroareolar regions, including ultrasound of the axilla when performed. Left Diagnostic tomosynthesis and 2D mammography including computer-aided detection (CAD) when performed. Unilateral or bilateral exam. COMPARISON: 1. MG MM DIG SCREENING MAMM BI W/CAD 03/31/2023 10:37 AM 2. MG MM DIG SCREENING MAMM BI W/CAD 03/29/2022 10:04 AM FINDINGS: MAMMOGRAPHY: Digital diagnostic spot compression views of the left breast and 90 degree lateral view of the left breast demonstrate normal overlapping fibroglandular structures without persistent mass or asymmetry identified. ULTRASOUND: Sonographic images of the left breast including the retroareolar region, all 4 quadrants and the axilla do not demonstrate any solid or cystic masses in the upper outer quadrant. However, in the lower inner quadrant within the 7 o'clock axis 7 cm from the nipple is a mammographically occult sonographically visible solid well-circumscribed ovoid mass measuring 0.4 x 0.3 x 0.3 cm in dimension. The finding is probably benign in etiology. No architectural distortion or acoustical shadowing. No skin thickening or axillary adenopathy. IMPRESSION: Probably benign left lower inner quadrant mass. A six-month follow-up targeted left breast ultrasound is recommended to ensure stability over time. ASSESSMENT: BI-RADS Category 3: Probably benign
== END ==
PROVIDERS: PCP Internal Medicine; Visit Provider Surgery
DX: R92.8 Other abnormal and inconclusive findings on diagnostic imaging of breast (principal)
CPT/HCPCS: 76641; 77061; 77065; G0279